=== PATIENT | male | born 1950 | race Caucasian/White ===

== ENCOUNTER → 2021-08-09 08:59 | Outpatient (BNVA) | payer MEDICARE, SELFPAY | PROVIDERS: PCP Internal Medicine | DX: N40.1 Benign prostatic hyperplasia with lower urinary tract symptoms (principal); R39.12 Poor urinary stream | CPT/HCPCS: 51798 ==

== ENCOUNTER → 2022-11-05 13:26 | Outpatient (BNVA) | payer OTHER, SELFPAY | PROVIDERS: PCP Student in an Organized Health Care Education/Training Program; Visit Provider Nurse Practitioner Family | DX: N40.1 Benign prostatic hyperplasia with lower urinary tract symptoms (principal); R39.12 Poor urinary stream; Z79.899 Other long term (current) drug therapy | CPT/HCPCS: 51798; 99212 ==

== ENCOUNTER 2023-04-25 09:56 | Outpatient (REF) | payer MEDICARE, SELFPAY ==
--- NOTE | ~2023-04-25 | US_ITS ---
EXAMINATION: US RETROPERITONEAL COMPLETE (RENAL) CLINICAL INFORMATION: Benign prostate hypertrophy and lower urinary tract symptoms. COMPARISON: None available. TECHNIQUE: Real-time imaging of the kidneys and bladder. FINDINGS: RIGHT KIDNEY: 10.5 x 6 x 6 cm (SAG x AP x TRV). The kidney is normal in size, contour, and echogenicity. Renal cortical thickness is normal. 2 cysts measuring 2.2 cm and 3.2 x 2.5 x 2.8 cm in the lower pole. No imaging follow-up recommended. No calculi or other focal parenchymal lesions. No hydronephrosis. LEFT KIDNEY: 11.4 x 5 x 6.5 cm (SAG x AP x TRV). The kidney is normal in size, contour, and echogenicity. Renal cortical thickness is normal. No calculi or focal parenchymal lesions. No hydronephrosis. BLADDER: Prostate gland is enlarged and protrudes into the base of the bladder. Bladder wall does not appear thickened. No stone or mass. Bilateral ureteral jets are demonstrated. Prevoid bladder volume is 200 mL. Postvoid bladder volume is 11 mL. The prostate gland measures 5.1 x 4.8 x 6 cm, volume 76 mL. The spleen is slightly enlarged measuring 16 cm in length. US/US retroperitoneal comp IMPRESSION: Unremarkable renal ultrasound. Enlarged prostate gland that protrudes into the base of the bladder. Slightly enlarged spleen.
[2023-04-25 12:03] LABS: PSA,Total (Free>4and<10) 1.99 ng/mL (0.00-4.00)
== END 2023-04-25 09:57 | disposition home or self-care (01) ==
LOC: HO.HMGCX 09:56
PROVIDERS: PCP Student in an Organized Health Care Education/Training Program; Visit Provider Nurse Practitioner Family
DX: Z12.5 Encounter for screening for malignant neoplasm of prostate (principal); N40.1 Benign prostatic hyperplasia with lower urinary tract symptoms; R39.12 Poor urinary stream
CPT/HCPCS: 36415; 76770; 84153

== ENCOUNTER → 2023-05-08 15:08 | Outpatient (BNVA) | payer MEDICARE, SELFPAY | PROVIDERS: PCP Student in an Organized Health Care Education/Training Program; Visit Provider Nurse Practitioner Family | DX: N40.1 Benign prostatic hyperplasia with lower urinary tract symptoms (principal); N13.8 Other obstructive and reflux uropathy; R39.12 Poor urinary stream; N52.9 Male erectile dysfunction, unspecified; Z79.82 Long term (current) use of aspirin; Z79.899 Other long term (current) drug therapy | CPT/HCPCS: 51798; 99212 ==

== ENCOUNTER 2023-10-27 09:40 | Outpatient (AMB) | payer MEDICARE, SELFPAY ==
--- NOTE | 2023-10-27 09:49 | MHC.OFFVIS ---
Intake Intake Visit Reasons: 6m/PVR Intake Note: Patient is present for follow up BPH/PVR Urology Medications: Terazosin, finasteride Blood Thinner: Aspirin PVR: 0ml's Phd Intern Required: No Accompanied by: Self / Same As Patient Allergies No Known Allergies [No Known Allergies*] Allergy (Verified 10/27/23 10:26) Medication List - Last Reconciled 10/27/23 by MARY Pfeiffer- amlodipine 10 mg PO DAILY aspirin (Adult Low Dose Aspirin) 81 mg PO DAILY atorvastatin 40 mg PO BEDTIME carvedilol 12.5 mg PO BID finasteride 5 mg PO DAILY 90 days fluticasone propion-salmeterol 250-50 mcg/dose 1 ea inhalation BID ibuprofen 800 mg PO Q8H PRN ipratropium-albuterol 20-100 mcg/actuation (Combivent Respimat) 1 puff inhalation QID PRN isosorbide mononitrate ER 30 mg PO DAILY omeprazole 40 mg PO BID terazosin 10 mg PO BEDTIME 90 days tramadol 50 mg PO TID PRN HPI HPI Comments History of Present Illness Details Lui is a pleasant 73-year-old male patient of Dr. Hunt. He has a PMH of cardiac pacemaker pacemaker, ED, BPH, asthma, hypertension, and hyperlipidemia. He presents to the office today for follow-up of his benign prostatic hyperplasia. Discussed with the patient today he reports feeling urinary symptoms are stable. He does report episodes of nocturia however states typically it is something else that wakes him up at night and then he needs to urinate. He discusses having had a recent MRI of his abdomen however ordering provider has not discussed results. These results were reviewed with the patient today. Evidence of bilateral inguinal hernia repairs. No evidence of hernia recurrence. Normal bowel caliber without evidence of obstruction. Colonic diverticulosis without evidence of diverticulitis. Unchanged mild splenomegaly. Trace bilateral effusions with adjacent passive atelectasis. No hydronephrosis, stones, or suspicious mass seen. Simple appearing renal cyst and hypodensities that are too small to characterize are noted, requiring no dedicated follow-up per radiology report. When asked he reports compliance with terazosin and finasteride as prescribed daily. He discusses following up with PCP for his ongoing right-sided intermittent abdominal discomfort he has been experiencing. He discusses he feels issues are related to his previous surgical interventions of bowel resections as well as hernia repairs. He otherwise denies any bothersome urinary issues or concerns. Patient with a previous TURP in the past with Dr. Saucedo. Discussed possible regrowth and the need for cystoscopy if symptoms arise. In office urinalysis results reviewed with the patient today. PVR 0 mL. PSA 05/02--2.0. PFSH Medical History Cardiac pacemaker Erectile dysfunction Benign prostatic hyperplasia with weak urinary stream Surgical History History of partial surgical removal of colon H/O cardiac catheterization Review of Systems Const Reports as per HPI Eyes Reports no additional complaints ENT Reports no additional complaints Card Reports no additional complaints Resp Reports as per HPI GI Reports no additional complaints Reports as per HPI Musc Reports as per HPI Neuro Reports as per HPI Psych Reports as per HPI Endo Reports no additional complaints Bao/Lymph Reports no additional complaints Aller/Immun Reports no additional complaints Physical Exam Const General: cooperative, healthy appearing, comfortable, no acute distress, well developed, alert and awake Orientation/consciousness: patient oriented x3 Limitations: no limitations HEENT Head: Yes normal to inspection, Yes normocephalic and Yes atraumatic Ears: hearing grossly normal bilaterally Eyes General: appearance normal, both eyes and all related structures Neck Neck: Yes normal visual inspection and Yes trachea midline Chest Chest palpation & inspection: normal inspection of the chest Resp Effort & Inspection: normal respiratory effort and able to speak in complete sentences Cardio Rate: regular rate GI Inspection: Yes normal to inspection General: Yes no CVA tenderness Back/Spine/Pelvis Back: no CVA tenderness Skin General skin exam: no rashes or lesions noted Neuro General: patient oriented x3 Extrem General: Yes normal to inspection Psych Appearance: grossly normal and well kempt Mental Status: mental status grossly normal Speech and movement: Normal speech and movement present and Clear speech present Affect: normal affect Attitude: cooperative Thought process: Normal thought process present Thought content: Normal thought content present Insight: Fair insight present (Psych) Judgement: Fair judgement present (Psych) Office Procedures Post Void Residual Post Residual Void Post Void Residual (PVR): 0 [id number]-[id number] Void Residual by ultrasound Results AMB Urinalysis, Automated UA Leukoctes 0 Matthieu/uL Last Edit by Rodrie Bress on 10/27/23 10:11 UA Nitrite Negative Last Edit by Zapieryce Bress on 10/27/23 10:11 UA Urobilinogen 0.2 mg/dL Last Edit by Zapieryce Bress on 10/27/23 10:11 UA Protein 0 mg/dL Last Edit by Zapieryce Bress on 10/27/23 10:11 UA pH 6.0 Last Edit by Zapieryce ActXss on 10/27/23 10:11 UA Blood 0 Barry/uL Last Edit by Zapieryce Bress on 10/27/23 10:11 UA Specific [employer] 1.015 Last Edit by ZapierycFixstarsss on 10/27/23 10:11 UA Ketone Negative Last Edit by [employer] on 10/27/23 10:11 UA Bilirubin 0 mg/dL Last Edit by ZapierycFixstarsss on 10/27/23 10:11 UA Glucose 0 mg/dL Last Edit by [employer] on 10/27/23 10:11 Results Reviewed Results Reviewed: Laboratory Last Values Urine pH (Auto) 6.0 10/27/23 10:00 Specific [employer] (Auto) 1.015 10/27/23 10:00 Urine Protein (Auto) 0 mg/dL 10/27/23 10:00 Glucose (UA)(Auto) 0 mg/dL 10/27/23 10:00 Urine Ketones (Auto) Negative 10/27/23 10:00 Urine Blood (Auto) 0 Barry/uL 10/27/23 10:00 Urine Nitrite (Auto) Negative 10/27/23 10:00 Urine Bilirubin (Auto) 0 mg/dL 10/27/23 10:00 Urine Urobilinogen (Auto) 0.2 mg/dL 10/27/23 10:00 Leukocyte Esterase (Auto) 0 Matthieu/uL 10/27/23 10:00 Assessment & Plan Assessment & Plan (1) Enlarged prostate: Code(s): N40.0 - Benign prostatic hyperplasia without lower urinary tract symptoms Plan In office urinalysis results reviewed with the patient today; as noted above. PVR 0 mL. Recent MRI imaging results obtained and reviewed with the patient today; as noted above. Patient denies any bothersome urinary issues or concerns at this time. Continue finasteride and terazosin as discussed and prescribed. Will obtain PSA in 6 months. Continue to follow-up with PCP as planned Patient reports be happy with current voiding parameters. Discussed, educated, encouraged on the importance of drinking plenty of water daily. Follow-up in 6 months with PVR and PSA; or sooner with any issues, concerns, and or questions. Orders: Orders AMB Urinalysis Automated Today Z13.9 - Encounter for screening, unspecified Prostate Specific Antigen 6 Months N40.0 - Benign prostatic hyperplasia without lower urinary tract symptoms AMB Post Void Residual by ultrasound Today N40.1 - Benign prostatic hyperplasia with lower urinary tract symptoms, R39.12 - Poor urinary stream Patient Instructions: The patient had an opportunity to ask questions regarding the treatment plan. All questions were answered. Physical exam, labs, and imaging were discussed and reviewed in detail. As well as risks, benefits, and discussion of treatment choices. No major barriers to understanding were identified. The patient expressed understanding and agreement with the above treatment plan. The patient was made aware they should contact our office by phone for worsening of their current condition, the appearance of new symptoms, or with any questions or concerns. Compliance is encouraged with any medications and follow up testing that is ordered. It is a privilege to be allowed the opportunity to participate in? your urological care.? Again, if you have any questions or concerns If you have any questions or concerns please do not hesitate to contact me. The office is [phone]. This note is constructed using voice recognition software. While every effort has been made to ensure accuracy recreation activities coordinator errors may have been included. Yours sincerely, ROBERT Pfeiffer Coding Level of Care Code Est Pt Level 3 (30823) Diagnoses Enlarged prostate N40.0 CPT Codes Post Residual Void - PVR CPT Code: 11996-Rcaq Void Residual by ultrasound ([id number])
== END 2023-10-27 10:27 | disposition home or self-care (01) ==
PROVIDERS: PCP Student in an Organized Health Care Education/Training Program; Visit Provider Nurse Practitioner Family
DX: Z13.9 Encounter for screening, unspecified (principal); N40.0 Benign prostatic hyperplasia without lower urinary tract symptoms
CPT/HCPCS: 99213

== ENCOUNTER → 2023-10-27 09:40 | Outpatient (BNVA) | payer MEDICARE, SELFPAY | PROVIDERS: PCP Student in an Organized Health Care Education/Training Program; Visit Provider Nurse Practitioner Family | DX: N40.0 Benign prostatic hyperplasia without lower urinary tract symptoms (principal) | CPT/HCPCS: 51798; 81003; 99212 ==

== ENCOUNTER 2024-04-23 08:15 | Outpatient (REF) | payer MEDICARE, SELFPAY ==
[2024-04-23 11:33] LABS: Prostate Specific Antigen 0.48 ng/mL (<0.05-4.0)
== END 2024-04-23 08:16 | disposition home or self-care (01) ==
LOC: HO.HMGCLDS 08:15
PROVIDERS: PCP Student in an Organized Health Care Education/Training Program; Visit Provider Nurse Practitioner Family
DX: N40.0 Benign prostatic hyperplasia without lower urinary tract symptoms (principal); Z12.5 Encounter for screening for malignant neoplasm of prostate
CPT/HCPCS: 36415; 84153

== ENCOUNTER 2024-04-28 10:28 | Outpatient (AMB) | payer MEDICARE, SELFPAY ==
--- NOTE | 2024-04-28 10:28 | A.OFFVIS_ITS ---
Intake Visit Reasons: 6m/PSA Intake Note: Patient is presents today for follow up on: BPH, Enlarged Prostate PSA: 1.99 Urology Medications: Terazosin, finasteride Blood Thinner: Aspirin PVR: 15ml's Equipment Installer Required: No Accompanied by: Self / Same As Patient Allergies No Known Allergies [No Known Allergies*] Allergy (Verified 04/28/24 11:11) Medication List - Last Reconciled 04/28/24 by KILEY PfeifferP- amlodipine 10 mg PO DAILY aspirin (Adult Low Dose Aspirin) 81 mg PO DAILY atorvastatin 40 mg PO BEDTIME carvedilol 12.5 mg PO BID finasteride 5 mg PO .MWF 90 days fluticasone propion-salmeterol 250-50 mcg/dose 1 ea inhalation BID ibuprofen 800 mg PO Q8H PRN ipratropium-albuterol 20-100 mcg/actuation (Combivent Respimat) 1 puff inhalation QID PRN isosorbide mononitrate ER 30 mg PO DAILY omeprazole 40 mg PO BID terazosin 10 mg PO BEDTIME 90 days tramadol 50 mg PO TID PRN HPI Comments Details: Lui is a pleasant 74-year-old male patient of Dr. Hunt. He has a PMH of cardiac pacemaker pacemaker, ED, BPH, asthma, hypertension, and hyperlipidemia. He presents to the office today for follow-up of his benign prostatic hyperplasia. In discussion with the patient today he reports urologically to be doing and feeling well. He reports compliance with finasteride and terazosin as prescribed. He reports significant improvement in nocturia. He currently denies any bothersome urinary issues or concerns. He denies urinary urgency, urinary frequency, incontinence, nocturia, hematuria, dysuria, foul smelling urine, changes to urinary stream, flank pain, fever, and or chills. He discusses his worry regarding his son who has metastatic cancer. He also reports to be following up with dermatology and has recently underwent MOHS procedure. In office urinalysis results reviewed with the patient today. PVR 15 mL. Otherwise offers no other issues or concerns at this time.the need for cystoscopy if symptoms arise. In office urinalysis results reviewed with the patient today. PSAs are as follows... PSA 05/02 2.0, 05/03 0.5 PFSH Medical History Cardiac pacemaker Erectile dysfunction Benign prostatic hyperplasia with weak urinary stream Surgical History History of partial surgical removal of colon H/O cardiac catheterization Review of Systems Const Reports as per [facility] Eyes Reports no additional complaints ENT Reports no additional complaints Card Reports no additional complaints Resp Reports as per [facility] GI Reports no additional complaints Reports as per HPI Musc Reports as per [facility] Skin/Breast Reports as per HPI Neuro Reports as per HPI Psych Reports as per HPI Endo Reports no additional complaints Bao/Lymph Reports no additional complaints Aller/Immun Reports no additional complaints Physical Exam Const General: cooperative, healthy appearing, comfortable, no acute distress, well developed, alert and awake Orientation/consciousness: patient oriented x3 Limitations: no limitations HEENT Head: Yes normal to inspection, Yes normocephalic and Yes atraumatic Ears: hearing grossly normal bilaterally Eyes General: appearance normal, both eyes and all related structures Neck Neck: Yes normal visual inspection and Yes trachea midline Chest Chest palpation & inspection: normal inspection of the chest Resp Effort & Inspection: normal respiratory effort and able to speak in complete sentences Cardio Rate: regular rate GI Inspection: Yes normal to inspection General: Yes no CVA tenderness Back/Spine/Pelvis Back: no CVA tenderness Skin General skin exam: no rashes or lesions noted Neuro General: patient oriented x3 Extrem General: Yes normal to inspection Psych Appearance: grossly normal and well kempt Mental Status: mental status grossly normal Speech and movement: Normal speech and movement present and Clear speech present Affect: normal affect Attitude: cooperative Thought process: Normal thought process present Thought content: Normal thought content present Insight: Fair insight present (Psych) Judgement: Fair judgement present (Psych) Office Procedures Post Void Residual Post Residual Void Post Void Residual (PVR): 15 [id number] Void Residual by ultrasound Results AMB Urinalysis, Automated UA Leukoctes 0 Matthieu/uL Last Edit by Evette Maradiaga on 04/28/24 10:50 UA Nitrite Negative Last Edit by Evette Maradiaga on 04/28/24 10:50 UA Urobilinogen 0.2 mg/dL Last Edit by Evette Maradiaga on 04/28/24 10:50 UA Protein 15 mg/dL Last Edit by Evette Maradiaga on 04/28/24 10:50 UA pH 6.0 Last Edit by Silmgreysonkevin Russellthe[employer] on 04/28/24 10:50 UA Blood 0 Barry/uL Last Edit by Slimmagalie Yvonnetheo on 04/28/24 10:50 UA Specific [employer] 1.015 Last Edit by Evette Yvonnetheo on 04/28/24 10:50 UA Ketone Negative Last Edit by Slimmagalie Yvonnetheo on 04/28/24 10:50 UA Bilirubin 1 mg/dL Last Edit by Evette Yvonnetheo on 04/28/24 10:50 UA Glucose 0 mg/dL Last Edit by Evette Yvonnetheo on 04/28/24 10:50 Results Reviewed Results Reviewed: Laboratory Last Values Urine pH (Auto) 6.0 04/28/24 10:30 Specific [employer] (Auto) 1.015 04/28/24 10:30 Urine Protein (Auto) 15 mg/dL 04/28/24 10:30 Glucose (UA)(Auto) 0 mg/dL 04/28/24 10:30 Urine Ketones (Auto) Negative 04/28/24 10:30 Urine Blood (Auto) 0 Barry/uL 04/28/24 10:30 Urine Nitrite (Auto) Negative 04/28/24 10:30 Urine Bilirubin (Auto) 1 mg/dL 04/28/24 10:30 Urine Urobilinogen (Auto) 0.2 mg/dL 04/28/24 10:30 Leukocyte Esterase (Auto) 0 Matthieu/uL 04/28/24 10:30 Assessment & Plan Assessment & Plan (1) Enlarged prostate: Code(s): N40.0 - Benign prostatic hyperplasia without lower urinary tract symptoms Category: Medical (2) Benign prostatic hyperplasia with weak urinary stream: Code(s): N40.1 - Benign prostatic hyperplasia with lower urinary tract symptoms; R39.12 - Poor urinary stream Category: Medical Plan In office urinalysis results reviewed with the patient today; as noted above. PVR 15 mL. Patient reports be happy with current voiding parameters. Currently denies any bothersome urinary issues or concerns. Recent PSA results reviewed with the patient today; as noted above. Discussed decrease of finasteride Friday; continue terazosin as prescribed; refill provided Follow-up in 6 months with PVR; or sooner with any issues, concerns, and or questions. Orders: Orders AMB Post Void Residual by ultrasound Today N40.1 - Benign prostatic hyperplasia with lower urinary tract symptoms, R39.12 - Poor urinary stream AMB Urinalysis Automated Today Z13.9 - Encounter for screening, unspecified Medications: Changed From finasteride 5 mg PO DAILY 90 days 90 tabs 3RF N40.1 - Benign prostatic hyperplasia with lower urinary tract symptoms, R33.9 - Retention of urine, unspecified To finasteride TAKE EVERY OTHER DAY 5 mg PO .MWF 90 days 45 tabs 3RF N40.1 - Benign prostatic hyperplasia with lower urinary tract symptoms, R33.9 - Retention of urine, unspecified Refilled terazosin 10 mg PO BEDTIME 90 days 90 caps 2RF Patient Instructions: The patient had an opportunity to ask questions regarding the treatment plan. All questions were answered. Physical exam, labs, and imaging were discussed and reviewed in detail. As well as risks, benefits, and discussion of treatment choices. No major barriers to understanding were identified. The patient expressed understanding and agreement with the above treatment plan. The patient was made aware they should contact our office by phone for worsening of their current condition, the appearance of new symptoms, or with any questions or concerns. Compliance is encouraged with any medications and follow up testing that is ordered. It is a privilege to be allowed the opportunity to participate in? your urological care.? Again, if you have any questions or concerns If you have any questions or concerns please do not hesitate to contact me. The office is [phone]. This note is constructed using voice recognition software. While every effort has been made to ensure accuracy special assemblies supervisor errors may have been included. Yours sincerely, ROBERT Pfeiffer Coding Level of Care Code Est Pt Level 3 (13463) Diagnoses Enlarged prostate N40.0 Benign prostatic hyperplasia with weak urinary stream N40.1; R39.12 CPT Codes Post Residual Void - PVR CPT Code: 33453-Eobu Void Residual by ultrasound ([id number])
== END 2024-04-28 11:10 | disposition home or self-care (01) ==
PROVIDERS: PCP Student in an Organized Health Care Education/Training Program; Visit Provider Nurse Practitioner Family
DX: N40.0 Benign prostatic hyperplasia without lower urinary tract symptoms (principal); N40.1 Benign prostatic hyperplasia with lower urinary tract symptoms; R39.12 Poor urinary stream; Z13.9 Encounter for screening, unspecified
CPT/HCPCS: 99213

== ENCOUNTER → 2024-04-28 10:28 | Outpatient (BNVA) | payer MEDICARE, SELFPAY | PROVIDERS: PCP Student in an Organized Health Care Education/Training Program; Visit Provider Nurse Practitioner Family | DX: N40.1 Benign prostatic hyperplasia with lower urinary tract symptoms (principal); R39.12 Poor urinary stream | CPT/HCPCS: 51798; 81003; 99212 ==

== ENCOUNTER 2024-12-14 11:39 | Outpatient (AMB) | payer MEDICARE, SELFPAY ==
--- NOTE | 2024-12-14 11:40 | A.OFFVIS_ITS ---
Intake Visit Reasons: 6m/PVR Intake Note: Patient is presents today for follow up on: BPH, Enlarged Prostate Urology Medications: Terazosin, finasteride Blood Thinner: Aspirin PVR: 0ml's Business System Manager Required: No Accompanied by: Self / Same As Patient Allergies No Known Allergies [No Known Allergies*] Allergy (Verified 12/14/24 14:21) HPI Comments Details: Lui is a pleasant 74-year-old male patient of Dr. Hunt. He has a PMH of cardiac pacemaker pacemaker, ED, BPH, asthma, hypertension, and hyperlipidemia. He presents to the office today for follow-up of his benign prostatic hyperplasia. In discussion with the patient today he reports urologically to be doing and feeling well. He reports compliance with finasteride and terazosin as prescribed. He reports significant improvement in nocturia urinary urgency. He currently denies any bothersome urinary issues or concerns. He denies urinary urgency, urinary frequency, incontinence, nocturia, hematuria, dysuria, foul smelling urine, changes to urinary stream, flank pain, fever, and or chills. He does report following up with his scroll saw operator and increasing his Lasix to 40 mg a day and has noted increased urinary frequency however relates this to his diuretic. He also reports following up with his slasher machine operator and has had a recent increase in his Celebrex as well as gabapentin. He discusses being active in his [employer] with his son and . He also discusses his 43 year wedding anniversary tomorrow. His son continues with his 5th year of chemo as he has metastatic cancer. In office urinalysis results reviewed with the patient today. PVR 15 mL. He otherwise offers no other issues or concerns at this time. PSAs are as follows... PSA 05/02 2.0, 05/03 0.5 [facility] Medical History Cardiac pacemaker Erectile dysfunction Benign prostatic hyperplasia with weak urinary stream Surgical History History of partial surgical removal of colon H/O cardiac catheterization Review of Systems Const Reports as per [facility] Eyes Reports no additional complaints ENT Reports no additional complaints Card Reports no additional complaints Resp Reports as per [facility] GI Reports no additional complaints Reports as per [facility] Musc Reports as per [facility] Skin/Breast Reports as per [facility] Neuro Reports as per [facility] Psych Reports as per [facility] Endo Reports no additional complaints Bao/Lymph Reports no additional complaints Aller/Immun Reports no additional complaints Physical Exam Const General: cooperative, healthy appearing, comfortable, no acute distress, well developed, alert and awake Orientation/consciousness: patient oriented x3 Limitations: no limitations HEENT Head: Yes normal to inspection, Yes normocephalic and Yes atraumatic Ears: hearing grossly normal bilaterally Eyes General: appearance normal, both eyes and all related structures Neck Neck: Yes normal visual inspection and Yes trachea midline Chest Chest palpation & inspection: normal inspection of the chest Resp Effort & Inspection: normal respiratory effort and able to speak in complete sentences Cardio Rate: regular rate GI Inspection: Yes normal to inspection General: Yes no CVA tenderness Back/Spine/Pelvis Back: no CVA tenderness Skin General skin exam: no rashes or lesions noted Neuro General: patient oriented x3 Extrem General: Yes normal to inspection Psych Appearance: grossly normal and well kempt Mental Status: mental status grossly normal Speech and movement: Normal speech and movement present and Clear speech present Affect: normal affect Attitude: cooperative Thought process: Normal thought process present Thought content: Normal thought content present Insight: Fair insight present (Psych) Judgement: Fair judgement present (Psych) Office Procedures Post Void Residual Post Residual Void Post Void Residual (PVR): 0 [id number]-[id number] Void Residual by ultrasound Results AMB Urinalysis, Automated UA Leukoctes 0 Matthieu/uL Last Edit by Evette Maradiaga on 12/14/24 14:25 UA Nitrite Last Edit by Evette Maradiaga on 12/14/24 14:25 UA Urobilinogen 0.2 mg/dL Last Edit by Evette Maradiaga on 12/14/24 14:25 UA Protein 0 mg/dL Last Edit by Evette Maradiaga on 12/14/24 14:25 UA pH 6.0 Last Edit by Evette Maradiaga on 12/14/24 14:25 UA Blood 0 Barry/uL Last Edit by Evette Yvonnetheo on 12/14/24 14:25 UA Specific [place] 1.015 Last Edit by Evette Yvonnetheo on 12/14/24 14:25 UA Ketone Last Edit by Evette Yvonnetheo on 12/14/24 14:25 UA Bilirubin 0 mg/dL Last Edit by Evette Yvonnetheo on 12/14/24 14:25 UA Glucose 100 mg/dL Last Edit by Evette Yvonnetheo on 12/14/24 14:25 Results Reviewed Results Reviewed: Laboratory Last Values Urine pH (Auto) 6.0 12/14/24 14:[address] [place] (Auto) 1.015 12/14/24 14:24 Urine Protein (Auto) 0 mg/dL 12/14/24 14:24 Glucose (UA)(Auto) 100 mg/dL 12/14/24 14:24 Urine Blood (Auto) 0 Barry/uL 12/14/24 14:24 Urine Bilirubin (Auto) 0 mg/dL 12/14/24 14:24 Urine Urobilinogen (Auto) 0.2 mg/dL 12/14/24 14:24 Leukocyte Esterase (Auto) 0 Matthieu/uL 12/14/24 14:24 Assessment & Plan Assessment & Plan (1) Enlarged prostate: Code(s): N40.0 - Benign prostatic hyperplasia without lower urinary tract symptoms Category: Medical (2) Benign prostatic hyperplasia with weak urinary stream: Code(s): N40.1 - Benign prostatic hyperplasia with lower urinary tract symptoms; R39.12 - Poor urinary stream Category: Medical Plan In office urinalysis results reviewed with the patient today; as noted above. PVR 15 mL. He reports be happy with current voiding parameters. He currently denies any bothersome urinary issues or concerns. Continue terazosin and finasteride as prescribed. Will obtain PSA in 6 months. Follow-up in 6 months with labs and PVR; or sooner with any issues, concerns, and or questions. Orders: Orders Prostate Specific Antigen 6 Months N40.0 - Benign prostatic hyperplasia without lower urinary tract symptoms, N40.1 - Benign prostatic hyperplasia with lower urinary tract symptoms, R39.12 - Poor urinary stream AMB Post Void Residual by ultrasound Today N40.0 - Benign prostatic hyperplasia without lower urinary tract symptoms AMB Urinalysis Automated Today Z13.9 - Encounter for screening, unspecified Patient Instructions: The patient had an opportunity to ask questions regarding the treatment plan. All questions were answered. Physical exam, labs, and imaging were discussed and reviewed in detail. As well as risks, benefits, and discussion of treatment choices. No major barriers to understanding were identified. The patient expressed understanding and agreement with the above treatment plan. The patient was made aware they should contact our office by phone for worsening of their current condition, the appearance of new symptoms, or with any qu estions or concerns. Compliance is encouraged with any medications and follow up testing that is ordered. It is a privilege to be allowed the opportunity to participate in? your urological care.? Again, if you have any questions or concerns If you have any questions or concerns please do not hesitate to contact me. The office is [phone]. This note is constructed using voice recognition software. While every effort has been made to ensure accuracy shank carrier errors may have been included. Yours sincerely, ROBERT Pfeiffer Coding Level of Care Code Est Pt Level 3 (32674) Complex EM visit Add On G2211 Diagnoses Enlarged prostate N40.0 Benign prostatic hyperplasia with weak urinary stream N40.1; R39.12 CPT Codes Post Residual Void - PVR CPT Code: 19787-Xrrx Void Residual by ultrasound ([id number])
--- OUTSIDE RECORDS SUMMARY | 2024-12-14 12:39 | XMS_ITS | Clinical Summary ---
Author Organization [address] [place] [address] Address [address] [place] [address] Phone Care Team Providers Care Sql Server Developer Name Role Phone Juve Reynoso Primary Care Provider [phone] Allergies Active Allergy Reactions Criticality Noted Date Comments Losartan High 08/18/2019 Angioedema-still being evaluated Medications Medication Sig Dispensed Refills Start Date End Date Status albuterol HFA (PROAIR HFA ; PROVENTIL HFA ; VENTOLIN HFA) 90 mcg/actuation inhaler Inhale 2 Puffs into the lungs every 4 hours as needed for Cough, Wheezing or Shortness of Breath (or chest tighness). This is a Rescue Medication not exceed 12 inhalations/24 hrs. 01/21/2024 Active aspirin 81 mg EC tablet Take 81 mg by mouth daily. Active atorvastatin (LIPITOR) 40 mg tablet Take 1 Tablet by mouth. 09/26/2023 Active celecoxib (CeleBREX) 200 mg capsule Take 1 Capsule by mouth daily. Active dapagliflozin propanediol (FARXIGA) 10 mg tablet Take 10 mg by mouth daily. 09/10/2024 Active EPINEPHrine (EpiPen 2-Bladimir) 0.3 mg/0.3 mL injection Inject 0.3 mg into the muscle. 10/09/2023 Active finasteride (PROSCAR) 5 mg tablet Take 1 Tablet by mouth every other day. 05/08/2023 Active fluticasone-salmete rol (ADVAIR DISKUS) 250-50 mcg/dose diskus inhaler Inhale 1 Puff into the lungs 2 Times Daily. 01/21/2024 Active furosemide (LASIX) 40 mg tablet Take 1 Tablet by mouth daily for 180 days. 09/09/2024 03/08/2025 Active gabapentin (NEURONTIN) 400 mg capsule Take 1 Capsule by mouth 2 Times Daily. Active glucosamine ho 2KCl-chondroit 750-600 mg tablet Take by mouth 2 Times Daily. Active DAILY MULTI-VITAMIN ORAL Take 1 Tablet by mouth daily. Active omeprazole (PriLOSEC) [address] capsule Take 1 Capsule by mouth daily. Active terazosin (HYTRIN) 10 mg capsule 1 Cap daily. 05/03/2019 Active traMADoL (ULTRAM) 50 mg tablet Take 50 mg by mouth 4 times daily as needed. 07/17/2017 Active carvediloL (COREG) 25 mg tablet Take 1 tablet (25 mg total) by mouth 2 (two) times a day with meals. 180 each 3 09/16/2024 09/16/2025 Active baclofen (LIORESAL) 5 mg tablet Take 1 tablet (5 mg total) by mouth 3 (three) times a day. Active Active Problems Problem Noted Date Diagnosed Date Chronic diastolic heart failure 09/09/2024 Lower extremity edema 09/07/2024 Obesity due to excess calories with serious raudel rbidity 02/21/2022 Obstructive sleep apnea 02/21/2022 Overview (09/14/2024): Last Assessment & Plan: The patient has been noncompliant with CPAP for many years; he declines referral for new sleep study or to pulmonology for further evaluation of his JEANETTE. We discussed the potential implications for his health regarding to untreated JEANETTE, he verbalizes understanding of this. We have reviewed that this may be contributing to his high blood pressure as well, and he continues to decline further intervention. Complete heart block 07/25/2021 Overview (09/14/2024): Last Assessment & Plan: Pacemaker in place, noted to be functioning properly on last check 06/29/2023. Continue with with device checks at the device clinic. Heart murmur 07/25/2021 Cardiac pacemaker in situ 12/30/2019 Asthma 10/04/2019 Stage 3 chronic kidney disease 10/04/2019 Overview (09/14/2024): Last Assessment & Plan: The patient does not follow with nephrology; he reports that his PCP has been monitoring this closely. SOB (shortness of breath) 08/26/2018 Overview (09/14/2024): Chronic, ct revealed small bilateal pleural effusion, refer to pulm pending and pfts Last Assessment & Plan: Chronic and stable, patient reports is at baseline. Uses FABIANO as needed. Return for any worsening symptoms. Adjustment disorder with mixed anxiety and depre ssed mood 08/14/2017 Coronary artery disease invo lving port lions coronary artery of port lions heart without angina pectoris 06/16/2017 Overview (09/14/2024): Cardiac catheterization 2016 Dr. Magana showing 50% LAD lesion recommendation is medical treatment Last Assessment & Plan: The patient reports baseline dyspnea with exertion, which is very mild and not consistent from activity to activity. He has 7 acres and is able to perform significantly exertional activities without any dyspnea, reporting the only time he really feels this is when he is bending over and lifting heavy things then walking for distance. He is a new diagnosis of hiatal hernia per his report, which may be contributing to this. He has no other is symptoms concerning for ischemia, and as such no further work-up is indicated at present. LDL cholesterol well controlled on last check 12/30/2022. We will continue carvedilol, atorvastatin 40 mg daily, as well as daily baby aspirin without change. Patient advised to seek emergency medical attention by calling 911 if they were to develop severe dyspnea, chest pain that did not resolve with rest, or if they were to faint. Subjective memory complaints 10/23/2016 Major depressive disorder, recurrent, moderate 0 07/19/2015 Irritable bowel syndrome 09/20/2013 C. difficile colitis 06/15/2013 Overview (09/14/2024): 08/2018, & 08/2013, Impaired fasting glucose 04/16/2013 BPH (benign prostatic hyperplasia) 03/11/2012 Overview (09/14/2024): Dr. Allen Fibromyalgia 03/07/2010 Essential hypertension 12/11/2009 Overview (09/14/2024): Last Assessment & Plan: The patient has had a recent adjustment in his medications with increase of carvedilol from 12.5 mg twice daily to 25 mg twice daily due to elevated blood pressures at home. He continues to take amlodipine 10 mg once daily as well. He is tolerating these medications well and reports compliance. His blood pressure is adequately controlled on today's measurement, however he reports that he is still having some high blood pressures at home on his home cuff. I have requested that he return within the next 2 weeks and that he bring his home cuff with him, so that we may check his blood pressure 1 more time to sure it remains well controlled and we will correlate his home cuff with ours at that time. Patient is agreeable to plan. We will make adjustments as needed once this repeat blood pressure check has been completed; no changes today. Mixed hyperlipidemia 09/06/2008 Overview (09/14/2024): Last Assessment & Plan: We will update labs Diverticulosis 01/01/2007 Overview (09/14/2024): 2013 Diverticulitis - partial bowel resection Esophageal reflux 10/14/2005 Hypersomnia with sleep apnea 10/14/2005 Overview (09/14/2024): Pt not interested in cpap Encounters Date Type Department Care Team Description 12/06/2024 Telephone [facility] [address] [facility] [address] [place] [phone] Alessandra Kenny MA Medication Problem (Farxiga?) 10/25/2024 Telephone [facility] [address] [facility] [address] [place] [phone] Argenis Bains NP 10/19/2024 10:10 AM EST Office Visit Pulmonolgy - [place] [address] [facility] [address] [place] [phone] Katherine Marin NP Moderate persistent asthma without complication (Primary Dx); SOB (shortness of breath); Chronic diastolic heart failure (CMS/HCC); Gastroesophageal reflux disease, unspecified whether esophagitis present; Obstructive sleep apnea; Class 1 obesity due to excess calories with serious comorbidity in adult, unspecified BMI 10/05/2024 10:30 AM EST Ancillary Procedure [facility] [place] [facility] [address] [place] [address] Complete heart block (CMS/HCC); AV heart block; Coronary artery disease involving port lions coronary artery of port lions heart without angina pectoris; Stage 3 chronic kidney disease, unspecified whether stage 3a or 3b CKD (CMS/HCC); SOB (shortness of breath); Lower extremity edema 09/22/2024 5:50 PM EST Ancillary Procedure [facility] [place] [facility] [address] [place] [phone] from Last 3 Months Immunizations Name Administration Dates Next Due Moderna SARS-CoV-2 COVID-19, mRNA, LNP-S, preservative free 09/21/2021 Pneumococcal conjugate 13 va lent (Prevnar 13, PCV13) 2mo and older 06/30/2015 Pneumococcal polysaccharide 23 valent (Pneumovax 23) 2yo and older 04/14/2014 Td Tetanus diptheria (Tdvax) 7yo and older 09/23 Tdap Tetanus diptheria acell ular pertussis (Boostrix; Adacel) 7yo and older 07/20/2008 Zoster Live 10/14/2013 Surgical History Surgery Date Site/Laterality Comments COLONOSCOPY 07/12/2011 PROCEDURE: HISTORICAL COLONOSCOPY; COMMENT: diverticulosis; random bx: Colonic biopsies normal. No microscopic colitis. OTHER SURGICAL HISTORY 08/2013 PROCEDURE: MN COLECTOMY PARTIAL W/ANASTOMOSIS; COMMENT: sigmoid colectomy for diverticulitis 2012 dr stone COLONOSCOPY 2003 PROCEDURE: HISTORICAL COLONOSCOPY; COMMENT: 15 mm Sessile tubular adenoma. COLONOSCOPY 2006 PROCEDURE: HISTORICAL COLONOSCOPY; COMMENT: No polyps COLONOSCOPY 2015 PROCEDURE: HISTORICAL COLONOSCOPY; COMMENT: 8 mm right colon polyp: tubular adenoma. CARDIAC CATHETERIZATION 2017 PROCEDURE: HISTORICAL CARDIAC CATH; COMMENT: 65% LAD TONSILLECTOMY 1954 PROCEDURE: HISTORICAL TONSILLECTOMY OTHER SURGICAL HISTORY 04/26/2019 PROCEDURE: MN LASER VAPORIZATION OF PROSTATE FOR URINE FLOW; COMMENT: Dr. Saucedo HERNIA REPAIR 2013 Left PROCEDURE: HISTORICAL HERNIA REPAIR/ING; COMMENT: 2013 CATARACT EXTRACTION 2017 PROCEDURE: HISTORICAL CATARACT REMOVAL HERNIA REPAIR 2018 Right PROCEDURE: HISTORICAL HERNIA REPAIR/ING Medical History Medical History Date Comments Mixed hyperlipidemia 09/06/2008 DX:Mixed hy perlipidemia Impaired fasting glucose 04/16/2013 DX:Impa ired fasting glucose Hypertension 12/11/2009 DX:Hypertension Adjustment disorder with mix ed anxiety and depressed mood 08/14/2017 DX:Adjustment disorder with mixed anxiety and depressed mood BPH (benign prostatic hyperplasia) 03/11/2012 DX:BPH (benign prostatic hyperplasia); COMMENT: Dr. Allen CAD (coronary artery disease) 06/16/2017 DX :CAD (coronary artery disease); COMMENT: Cardiac catheterization 2016 Dr. Magana showing 50% LAD lesion recommendation is medical treatment Esophageal reflux 10/14/2005 DX:Esophageal reflux Fibromyalgia 03/07/2010 DX:Fibromyalgia History of colonic polyps 01/01/2007 DX:His tory of colonic polyps; COMMENT: colonoscopy 2003, sessile tubular adenoma, ascending colon. Negative colonoscopy 01/01/2007, 07/12/20112015 Hypersomnia with sleep apnea 10/14/2005 DX: Hypersomnia with sleep apnea; COMMENT: Pt not interested in cpap Irritable bowel syndrome 09/20/2013 DX:Irri table bowel syndrome Major depressive disorder, r ecurrent, moderate (CMS/HCC) 07/19/2015 DX:Major depressive disorder , recurrent, moderate (HCC) Subjective memory complaints 10/23/2016 DX: Subjective memory complaints SOB (shortness of breath) 08/26/2018 DX:SOB (shortness of breath); COMMENT: Chronic, ct revealed small bilateal pleural effusion, refer to pulm pending and pfts CKD (chronic kidney disease) stage 3, GFR 30-59 ml/min (CMS/HCC) 10/04/2019 DX:CKD (chronic kidney dise ase) stage 3, GFR 30-59 ml/min (HCC) Asthma 10/04/2019 DX:Asthma Diverticulosis 01/01/2007 DX:Diverticulosi s; COMMENT: 2012 Diverticulitis - partial bowel resection C. difficile colitis 06/15/2013 DX:C. diffi cile colitis; COMMENT: 08/2018, & 08/2013, Family History Medical History Relation Name Comments Heart failure Father age 88 Arthritis Mother age 86 Autoimmune disease Neg Hx Breast cancer Neg Hx Colon cancer Neg Hx Coronary artery disease Neg Hx Diabetes Neg Hx Heart attack Neg Hx Hyperlipidemia Neg Hx Hypertension Neg Hx Mental illness Neg Hx Prostate cancer Neg Hx Sleep apnea Neg Hx Thyroid disease Neg Hx Relation Name Status Comments Father (Age 88) only child Mother (Age 86) Social History Tobacco Use Types Packs/Day Years Used Date Smoking Tobacco: Never Smokeless Tobacco: Never Alcohol Use Standard Drinks/Week Comments Yes 0 (1 standard drink = 0.6 oz pur e alcohol) Sex and Gender Information Value Date Recorded Sex Assigned at Not on file Gender Identity Not on file Sexual Orientation Not on file Job Start Date Occupation Industry Not on file Not on file Not on file Obstetrics History Last Filed Vital Signs Vital Sign Reading Time Taken Comments Blood Pressure 124/60 10/19/2024 10:20 AM EST Pulse 54 10/19/2024 10:20 AM EST Temperature 36.9 ??C (98.5 ??F) 10/19/2024 10:[address] Respiratory Rate 16 10/19/2024 10:20 AM EST Oxygen Saturation 96% 10/19/2024 10:20 AM EST Inhaled Oxygen Concentration - - Weight 92.8 kg (204 lb 9.6 oz) 10/19/2024 10:20 AM EST Height 170.2 cm (5' 7 ) 10/19/2024 10:20 AM EST Body Mass Index 32.04 10/19/2024 10:20 AM EST Plan of Treatment Upcoming Encounters Date Type Department Care Team (Late st Contact Info) Description 12/16/2024 10:30 AM EST Ancillary Procedure [facility] [place] [facility] [address] [facility] [address] [place] [address] 01/28/2025 10:40 AM EDT Office Visit [facility] [address] [facility] [address] [place] [phone] Cyndy Diego NP [address] [facility] [address] [place] [address] 04/20/2025 10:30 AM EDT Office Visit Pulmonolgy [facility] [address] [facility] [address] [place] [phone] Katherine Marin NP [address] [facility] [address] [place] [address] Health Maintenance Due Date Last Done Comments Zoster Vaccines (2 of 3) 12/09/2013 10/14/2013 Depression Screening 10/19/2022 Falls Risk Assessment 10/19/2022 Medicare Annual Wellness Visit 10/19/2022 Social Influencers of Health Screening 10/19/2022 RSV Immunization Patients 60+ Years Old (1 - 1-dose 75+ series) 2024 Influenza Vaccine (#1) 2024 Hypertension/CHF/CAD Annual BMP Blood Test 09/14/2025 09/14/2024, 08/26/2022 Cholesterol Screening (Lipid Panel) 08/26/2027 08/26/2022 DTaP,Tdap,and Td Vaccines (3 - Td or Tdap) 09/23/2028 09/23/2018, 07/20/2008 Colorectal Cancer Screening: Colonoscopy 07/19/2032 07/19/2022 Hepatitis C Screening Completed 10/15/2013 Pneumococcal Vaccine: 65+ Years Completed 06/30/2015, 04/14/2014 COVID-19 Vaccine Completed 08/04/2024, 03/2023, 09/13/2022, Additional history exists HIB Vaccines Aged Out No longer eligi ble based on patient's age to complete this topic HPV Vaccines Aged Out No longer eligi ble based on patient's age to complete this topic Hepatitis A Vaccines Aged Out No long er eligible based on patient's age to complete this topic Hepatitis B Vaccines Aged Out No long er eligible based on patient's age to complete this topic IPV Vaccines Aged Out No longer eligi ble based on patient's age to complete this topic MMR Vaccines Aged Out No longer eligi ble based on patient's age to complete this topic Meningococcal ACWY Vaccine Aged Out N o longer eligible based on patient's age to complete this topic RSV Immunization Patients Under 20 months Aged Out No longer eligible based on patient's age to complete this topic Varicella Vaccines Aged Out No longer eligible based on patient's age to complete this topic Medical Devices Implanted Type Area Bait Packer Device Identifier Shelf Expiration Date Model / Serial / Lot Bsci-Crm [id number] Implanted: (Quantity not on file) Cardiac Pacemaker [employer]HY[employer] MGMT [id number] / [id number] / Procedures Procedure Name Priority Date/Time Associated Diagnosis Comments VAS US DUPLEX LOWER EXT VENOUS INSUFFICIENCY BILATERAL Routine 10/05/2024 11:23 AM EST Complete heart block (CMS/HCC) AV heart block Coronary artery disease involving port lions coronary artery of port lions heart without angina pectoris Stage 3 chronic kidney disease, unspecified whether stage 3a or 3b CKD (CMS/HCC) SOB (shortness of breath) Lower extremity edema CARDIAC DEVICE CHECK- REMOTE- MURJ Routine 09/22/2024 5:47 PM EST SPECIMEN STATUS REPORT Routine 12:00 PM EST BASIC METABOLIC PANEL Routine 09/14/2024 12:00 PM EST LIPID PANEL Routine 08/26/2022 HM COLONOSCOPY Routine 07/19/2022 HEPATITIS C SCREENING Routine 10/15/2013 from Last 3 Months or Most Recently Relevant to Health Maintenance Results * Vascular US duplex lower extremity venous insufficiency bilateral (10/05/2024 11:23 AM EST) Right SFJ Diameter 0.65 cm CV VAS LAB Right GSPT rebekah 0.49 cm CV VAS LAB Right GSMT rebekah 0.38 cm CV VAS LAB Right GSK rebekah 0.49 cm CV VAS LAB Right GSPC rebekah 0.37 cm CV VAS LAB Right GSDC rebekah 0.25 cm CV VAS LAB Right SPJ Diameter 0.62 cm CV VAS LAB Right SSPC rebekah 0.45 cm CV VAS LAB Right SSMC rebekah 0.28 cm CV VAS LAB Left SFJ Diameter 0.78 cm CV VAS LAB Left GSPT rebekah 0.38 cm CV VAS LAB Left GSMT rebekah 0.40 cm CV VAS LAB Left GSK rebekah 0.35 cm CV VAS LAB Left GSPC reflux 3,166 ms CV VAS LAB Left GSPC rebekah 0.33 cm CV VAS LAB Left GSDC rebekah 0.33 cm CV VAS LAB Left SPJ Diameter 0.39 cm CV VAS LAB Left SSPC rebekah 0.33 cm CV VAS LAB Left SSMC rebekah 0.25 cm CV VAS LAB Anatomical Region Laterality Modality Vascular, Abdomen Ultrasound Narrative 10/10/2024 3:29 PM EST Right: 1. ??The right lower extremity veins are compressible and there is no evidence of DVT in the right lower extremity venous system. 2. The GSV and SSV has no clinically significant reflux. Left: 1. ??The left lower extremity veins are compressible and there is no evidence of DVT in the left lower extremity venous system. 2. The GSV has clinically significant reflux of 3.1 seconds at the left upper calf. 3. The SSV has no clinically significant reflux. Right Lower Venous The common femoral, femoral, greater saphenous and lesser saphenous and popliteal veins were interrogated, demonstrating normal compressibility. Doppler signals were phasic and spontaneous. Right Venous Insufficiency Duplex The exam was performed with the patient in reverse Trendelenburg. Left Lower Venous The common femoral, femoral, greater saphenous and lesser saphenous and popliteal veins were interrogated, demonstrating normal compressibility. Doppler signals were phasic and spontaneous. Left Venous Insufficiency Duplex The exam was performed with the patient in reverse trendelenburg. Lure Maker Details A burnham scale, color and doppler analysis ultrasound was performed. During the study transverse views were obtained. Continuous wave doppler and pulsed wave doppler was performed. Jeanmarie Denise MD CV VASCULAR PROCEDUR ES * Cardiac device check - Remote- MURJ (09/22/2024 5:47 PM EST) Date Time Interrogation Session [id number] CV DEVICE CHECK Type Interrogation Session Remote Scheduled CV DEVICE CHECK Implantable Pulse Generator Bait Packer BSX CV DEVICE CHECK Implantable Pulse Generator Type IPG CV DEVICE CHECK Implantable Pulse Generator Model L111 CV DEVICE CHECK Implantable Pulse Generator Serial Number [id number] CV DEVICE CHECK Implantable Pulse Generator Implant Date 20191204 CV DEVICE CHECK Battery Remaining Percentage 86.00 CV DEVICE CHECK Battery Remaining Longevity 54.0 CV DEVICE CHECK Battery Status Beginning of Service CV DEVICE CHECK Eddie Statistic RA Percent Paced 22.00 CV DEVICE CHECK Eddie Statistic RV Percent Paced 100.00 CV DEVICE CHECK Atrial Tachy Statistic AT/AF [place] Percent 0.00 CV DEVICE CHECK Lead Channel Setting Sensing Sensitivity 0.25 CV DEVICE CHECK Lead Channel Impedance Value 681 CV DEVICE CHECK Lead Channel Pacing Threshold Amplitude 0.600 CV DEVICE CHECK Lead Channel Pacing Threshold Pulse Width 0.4 CV DEVICE CHECK Lead Channel RA Pacing Threshold Date 2024-09-20 CV DEVICE CHECK Lead Channel Setting Pacing Amplitude 2.000 CV DEVICE CHECK Lead Channel Setting Pacing Pulse Width 0.4 CV DEVICE CHECK Lead Channel Setting Sensing Sensitivity 0.60 CV DEVICE CHECK Lead Channel Impedance Value 751 CV DEVICE CHECK Lead Channel Pacing Threshold Amplitude 1.000 CV DEVICE CHECK Lead Channel Pacing Threshold Pulse Width 0.4 CV DEVICE CHECK Lead Channel RV Pacing Threshold Date 2024-09-20 CV DEVICE CHECK Lead Channel Setting Pacing Amplitude 1.300 CV DEVICE CHECK Lead Channel Setting Pacing Pulse Width 0.4 CV DEVICE CHECK Eddie Setting Mode (NBG Code) DDD CV DEVICE CHECK Eddie Setting Lower Rate Limit 50 CV DEVICE CHECK Eddie Setting AT Mode Switch Rate 170 CV DEVICE CHECK Eddie Setting Maximum Tracking Rate 130 CV DEVICE CHECK Eddie Setting PAV Delay 150 CV DEVICE CHECK Eddie Setting BERTHA Delay 135 CV DEVICE CHECK Zone Setting Type Category VT CV DEVICE CHECK Rate 160 CV DEVICE CHECK Zone Setting Status Monitor CV DEVICE CHECK Zone ID 1 CV DEVICE CHECK Date of Service 2024-10-02 CV DEVICE CHECK Anatomical Region Laterality Modality Device Interroga tion 09/22/2024 12:5 5 AM EST Impressions 09/22/2024 5:43 PM EST Normal Remote: No Events * Normal Device Function * Alerts or events: None * Battery: Battery is at 86%, 4.50 yrs * Sensing, impedance and thresholds reviewed * Programmed parameters reviewed * Presenting rhythm reviewed * Heart Rate Histograms reviewed * No significant changes noted Narrative Procedure Note Omer Sidhu MD - 09/22/2024 IMPRESSION: Normal Remote: No Events * Normal Device Function * Alerts or events: None * Battery: Battery is at 86%, 4.50 yrs * Sensing, impedance and thresholds reviewed * Programmed parameters reviewed * Presenting rhythm reviewed * Heart Rate Histograms reviewed * No significant changes noted Omer Sidhu MD CV IMPLANTABLE CARDI AC DEVICE PROCEDURES * SPECIMEN STATUS REPORT (09/14/2024 12:00 PM EST) Specimen Status Report Comment [facility] 1 Comment: Martina Perez BMP8 Default Martina Perez BMP8 Default A hand-written panel/profile was received from your office. In accordance with the [facility] Ambiguous Test Code Policy dated May 2003, we have completed your order by using the closest currently or formerly recognized AMA panel. ??We have assigned Basic Metabolic Panel (8), Test Code #000574 to this request. If this is not the testing you wished to receive on this specimen, please contact the [facility] Client Inquiry/Technical Services Department to clarify the test order. ??We appreciate your business. 09/14/2024 12:0 0 PM EST 09/14/2024 Narrative [facility] 1 - 09/15/2024 3:06 AM EST Performed at: ??01 - [address] ??[id number] Requirements Manager: Maxine Clayton MD, Phone: ??[phone] Jeanmarie Denise MD LAB BLOOD ORDERABLES [facility] 1 * (ABNORMAL) Basic metabolic panel (09/14/2024 12:00 PM EST) Glucose 103(H) 70 - 99 mg/dL [facility] 1 Blood Urea Nitrogen (BUN) 34(H) 8 - 27 mg/dL [facility] 1 Creatinine 1.44(H) 0.76 - 1.27 mg/dL [facility] 1 eGFR 51(L) >59 mL/min/1.7 3 [facility] 1 BUN/Creatinine Ratio 24 10 - 24 [facility] 1 Sodium 143 134 - 144 mmol/L [facility] 1 Potassium 4.2 3.5 - 5.2 mmol/L [facility] 1 Chloride 106 96 - 106 mmol/L [facility] 1 Carbon Dioxide 22 20 - 29 mmol/L [facility] 1 Calcium 8.9 8.6 - 10.2 mg/dL [facility] 1 09/14/2024 12:0 0 PM EST 09/14/2024 Narrative [facility] 1 - 09/15/2024 3:06 AM EST Performed at: ??01 - [facility] [address] ??[id number] Requirements Manager: Maxine Clayton MD, Phone: ??[phone] Jeanmarie Denise MD LAB BLOOD ORDERABLES [facility] 1 * (ABNORMAL) Lipid panel (08/26/2022) Pathologist [facility] LDL/HDL Ratio 4 0 - 4 Triglycerides 89 0 - 150 mg/dL Cholesterol 122 0 - 200 mg/dL HDL 35(A) 40 mg/dL LDL Cholesterol 70 0 - 100 mg/dL Blood Venous blood specimen / Unknown Historical Provider LAB BLOOD ORDERAB LES * Colonoscopy (07/19/2022) Pathologist [facility] Colonoscopy No Interpretation , Abstracted Anatomical Region Laterality Modality Other Historical Provider HEALTH MAINTENANC E * Hepatitis C Screening (10/15/2013) Pathologist [facility] Hepatitis C Screening Abstracted Historical Provider HEALTH MAINTENANC E from Last 3 Months or Most Recently Relevant to Health Maintenance Advance Directives Documents on File Type Date Recorded Patient Chain Builder Expl anation Health Care Decision (hx) 07/04/2018 AD JOHNSON DIRECTIVE Health Care Decision (hx) 07/04/2018 AD JOHNSON DIRECTIVE Health Care Decision (hx) 07/04/2018 AD JOHNSON DIRECTIVE Health Care Decision (hx) 07/04/2018 AD JOHNSON DIRECTIVE Health Care Decision (hx) 07/04/2018 AD JOHNSON DIRECTIVE Health Care Decision (hx) 07/04/2018 AD JOHNSON DIRECTIVE Health Care Decision (hx) 07/04/2018 AD JOHNSON DIRECTIVE Care Teams Sql Server Developer Relationship Specialty Start Date End Date Juve Reynoso PA [address] [place], [place] PCP - General 09/07/24
--- OUTSIDE RECORDS SUMMARY | 2024-12-14 12:39 | XMS_ITS | Continuity of Care Document ---
Author Organization [facility] Address [address] [place] [address]- Care Team Providers Care Partition Notcher Name Role Phone Juve Chen Primary Care Physician [phone] [facility] Date(s): 11/09/24 - 12/09/[address] [address] Encounter Type: Triage Allergies, Adverse Reactions, Alerts Substance Criticality Severity Reaction Reaction Severity Status losartan Active Immunizations Given and Recorded Vaccine Date Status Refusal Reason [id number] bivalent booster vax 09/13/22 Recorded SARS-CoV-2 (COVID-19) mRNA-1273 vaccine 09/21/21 R ecorded SARS-CoV-2 (COVID-19) mRNA-1273 vaccine 02/06/21 R ecorded SARS-CoV-2 (COVID-19) mRNA-1273 vaccine 01/09/21 R ecorded tetanus-diphtheria toxoids (Td) 09/23/18 Recorded pneumococcal 13-valent vaccine 06/30/15 Recorded pneumococcal 23-valent vaccine 04/14/14 Recorded Zoster Vaccine Live 10/14/13 Recorded tetanus/diphtheria/pertussis, acel(Tdap) 07/20/08 Recorded Medications Aerochamber See Instructions, # 1 each, Maintenance, use with MDI, 04/07/19 4:46:00 PM EDT, Compound Start Date: 04/07/19 Status: Ordered Quantity: 1.0 Unit: each Repeat number: 1 amLODIPine 10 mg oral tablet 1 tablet, By Mouth, Daily, # 90 tablet, 1 Refills, Maintenance, 06/29/24 10:43:00 AM EDT, [facility], 170.4, cm, 12/25/23 8:59:00 EST, Height, 92, kg, 07/30/23 13:06:00 EDT, Dry Weight Start Date: 06/29/24 Stop Date: 12/26/24 Status: Ordered Quantity: 90.0 Unit: tablet Repeat number: 2 aspirin 81 mg oral tablet 1 tablet, By Mouth, Daily, # 30 tablet, 0 Refills, Maintenance, 06/28/11 1:35:08 PM EDT, Tablet Start Date: 06/28/11 Status: Ordered Quantity: 30.0 Unit: tablet Repeat number: 1 atorvastatin 40 mg oral tablet 1 tablet, By Mouth, Daily, # 90 tablet, 1 Refills, Maintenance, 12/03/24 12:09:00 PM EST, [facility], 170.4, cm, 09/01/24 17:27:00 EDT, Height, 95, kg, 09/01/24 17:27:00 EDT, Dry Weight Start Date: 12/03/24 Status: Ordered Quantity: 90.0 Unit: tablet Repeat number: 1 baclofen 5 mg oral tablet 1 tablet = 5 mg, By Mouth, 3 times a day, # 90 tablet, 0 Refills, Maintenance, 11/09/24 8:33:00 AM EST, Tablet, [facility], Partial fill upon patient request if the prescription is for a schedule II opioid drug., 170.4, cm, 09/01/24 17:27:00 EDT, Height, 95, kg, 09/01/24 17:27:00 EDT, Dry Weight Start Date: 11/09/24 Status: Ordered Quantity: 90.0 Unit: tablet Repeat number: 1 celecoxib 200 mg oral capsule 1 capsule, By Mouth, Daily, PRN NEEDED FOR MODERATE PAIN, # 90 capsule, 0 Refills, Maintenance, 10/12/24 12:41:00 PM EST, [facility], 170.4, cm, 09/01/24 17:27:00 EDT, Height, 95, kg, 09/01/24 17:27:00 EDT, Dry Weight Start Date: 10/12/24 Status: Ordered Quantity: 90.0 Unit: capsule Repeat number: 1 Combivent Respimat 20 mcg-100 mcg/inh inhalation aerosol 1 puffs, Inhalation, 4 times a day, 0 Refills, Maintenance, 12/17/22 1:44:00 PM EST, Partial fill upon patient request if the prescription is for a schedule II opioid drug. Start Date: 12/17/22 Status: Ordered Repeat number: 1 Daily Multi By Mouth, Daily, 0 Refills, Maintenance, 12/17/22 1:47:00 PM EST, Partial fill upon patient request if the prescription is for a schedule II opioid drug. Start Date: 12/17/22 Status: Ordered Repeat number: 1 EpiPen 2-Bladimir 0.3 mg injectable kit = 0.3 mg, Intramuscular, Once, # 1 each, 0 Refills, Soft Stop, 10/09/23 11:14:00 AM EST, [facility], Partial fill upon patient request if the prescription is for a schedule II opioid drug., 170.4, cm, 08/21/23 8:39:00 EDT, Height, 92, kg, 07/30/23 13:06:00 EDT, Dry Weight Start Date: 10/09/23 Status: Ordered Quantity: 1.0 Unit: each Repeat number: 1 finasteride 5 mg oral tablet .05, By Mouth, Daily, TAKE 1 TABLET BY MOUTH ONCE DAILY Start Date: 06/19/23 Status: Ordered Repeat number: 1 furosemide 20 mg oral tablet 1, capsule, By Mouth, 2 times a day, # 28 capsule, Refills 0, Tot. Refills 0, Soft Stop, 09/01/24 3:54:00 PM EDT, Route to Pharmacy Electronically, [facility], Partial fill upon patient request if the prescription is for a schedule II opioid drug., 170.4, cm, 09/01/24 14:38:00 EDT, Height, 95.5, kg, 08/02/24 10:21:00 EDT, Dry Weight Start Date: 09/01/24 Stop Date: 09/15/24 Status: Ordered Quantity: 28.0 Unit: capsule Repeat number: 1 gabapentin 300 mg oral capsule TAKE 1 CAPSULE BY MOUTH TWICE DAILY Start Date: 08/21/23 Status: Ordered Repeat number: 1 Glucosamine See Instructions, two tabs daily, 0 Refills, Maintenance, 06/04/13 6:44:24 PM EDT Start Date: 06/04/13 Status: Ordered Repeat number: 1 omeprazole 20 mg oral enteric coated capsule 1 capsule, By Mouth, 2 times a day, # 180 capsule, 1 Refills, Maintenance, 11/13/24 8:29:00 AM EST, [facility], 170.4, cm, 09/01/24 17:27:00 EDT, Height, 95, kg, 09/01/24 17:27:00 EDT, Dry Weight Start Date: 11/13/24 Status: Ordered Quantity: 180.0 Unit: capsule Repeat number: 2 Readi-Cat 2 Smoothie [place] 2% oral suspension See Instructions, Take as directed for CT scan, # 1 each, 0 Refills, Maintenance, 08/29/23 2:42:00 PM EDT, [facility], Partial fill upon patient request if the prescription is for a schedule II opioid drug., Take as directed for CT scan, 170.4, cm, 08/21/23 8:39:00 EDT, Height, 92, kg, 07/30/23 13:06:00 EDT, Dry Weight Start Date: 08/29/23 Status: Ordered Quantity: 1.0 Unit: each Repeat number: 1 terazosin 10 mg oral capsule 10 mg, 1, capsule, By Mouth, Daily at bedtime, Refills 0, Maintenance, 11/26/18 2:16:21 PM EST Start Date: 11/26/18 Status: Ordered Repeat number: 1 traMADol 50 mg oral tablet 1 tablet = 50 mg, By Mouth, Every 6 hours, PRN as needed for pain, 0 Refills, Maintenance, 06/11/17 7:14:03 AM EDT, Tablet Start Date: 06/11/17 Status: Ordered Repeat number: 1 zylflamend zylflamend, See Instructions, Refills 0, Maintenance, 1 x a day, 07/30/24 12:58:00 PM EDT, Supply Start Date: 07/30/24 Status: Ordered Repeat number: 1 Problem List Condition Confirmation Course Effective Dates Status H ealth Status Informant Asthma Confirmed Active BPH (benign prostatic hyperplasia) Confirmed Active Pacemaker Confirmed Active CAD (coronary artery disease) Confirmed Active Generalized anxiety disorder Confirmed Active Hypertension Confirmed Active ITP (idiopathic thrombocytopenic purpura) Confirmed Active Obese class I Confirmed Active JEANETTE (obstructive sleep apnea) Confirmed Active Social History Social History Type Response Smoking Status Never smoker entered on: 12/28/15 Sex Male Sex Representation Male (finding) Patient Care team information Care Team Personnel Name: Juve Chen Position: [facility] PCO Associate Professional Member Role: PCP Address: [address] [place] [address] [address] Telecom: Name: Jessica Gallegos RN Position: [facility] RN Member Role: Primary Care Nurse Name: Flower Joya RN Position: [facility] Onco RN Member Role: Primary Care Nurse Care Team Related Persons Name: GARY ROSENBERG Name: ALEXANDRA ROSENBERG Insurance Providers Guarantor name: MARLA CHET [facility] Plan Information #: 1 Payer: [facility] MEDICARE ADV PPO Member Number: NA Policy Number: NA Group Number: [id number]
--- OUTSIDE RECORDS SUMMARY | 2024-12-14 12:39 | XMS_ITS | Encounter Summary ---
Author Organization [facility] Address [address] [place] [address] Care Team Providers Care Marketing Automation Analyst Name Role Phone Juve Reynoso Primary Care Provider [phone] Reason for Visit * Reason Onset Date Comments Medication Problem 12/06/2024 Farxiga? Encounter Details Date Type Department Care Team ([facility] st Contact Info) Description 12/06/2024 Telephone [facility] - [facility] [address] [place] [phone] Alessandra Kenny MA Medication Problem (Farxiga?) Social History Tobacco Use Types Packs/Day Years [...] file Not on file Not on file documented as of this encounter Progress Notes * Alessandra Kenny MA - 12/07/2024 7:27 AM EST Spoke with patient verbalized understanding of message given. * Alessandra Kenny MA - 12/06/2024 1:31 PM EST Spoke with patient, said he has been taking Lasix 40mg and Farxiga 10mg all along. Patient said he hasn't had any swelling, and he feels pretty good. Patient has recently been prescribed an inhaler by his wind tunnel engineer, and PCP prescribed celebrex 200mg, baclofen 5mg TID, patient stopped Ibuprofen and metformin which was stopped by his PCP. * Alessandra Kenny MA - 12/06/2024 10:40 AM EST Patient calling asking if he needs to continue taking Farxiga, said it's a little expensive and doesn't want to purchase this and you tell him he can stop taking it sometime soon. Next appt with Bet01/28/2025. documented in this encounter Plan of Treatment Upcoming Encounters Date Type Department Care Team (Late st Contact Info) Description 12/16/2024 10:30 AM EST Ancillary Procedure [facility] Cardiology [facility] [address] [facility] [address] [place] [address] 01/28/2025 10:40 AM EDT Office Visit [facility] Cardiology [facility] [address] [place] [address] Cyndy Diego NP [address] [place] [address] 04/20/2025 10:30 AM EDT Office Visit Pulmonolgy - [place] [address] [place] [id number] Katherine Marin NP [address] [place] [address] documented as of this encounter Visit Diagnoses Not on filedocumented in this encounter Care Teams Marketing Automation Analyst Relationship Specialty Start Date End Date Juve Reynoso PA [address] [place] [address] PCP - General 09/07/24 documented as of this encounter
--- OUTSIDE RECORDS SUMMARY | 2024-12-14 12:39 | XMS_ITS | Data Portability ---
Author Organization [place] - [facility], Allergy Address [address] [address] Care Team Providers Care Color Stripper Name Role Phone MIKE CRAFT Primary Care Provider [phone] Assessment Encounter Date Assessment Date Assessment LastModified by Organization Details LastModified Time 10/13/2024 10/13/2024 Patient presents for re-evaluation of asymmetric hearing loss. Otologic exam unremarkable and audiometric testing demonstrates stability of the hearing loss on both sides. Discussed MRI of IACs would likely be of low yield. Patient does not desire to pursue this. Recommend dropping to annual audiometric testing. Patient understands the importance of calling sooner with perceived change. [email or web address] Not available 10/13/2024 16:36:39 Plan of Treatment Reminders Order Date Submit Date Provider Last Modified By Organization Details Last Modified Time Details Appointments None record ed. Lab None record ed. Referral None record ed. Procedures None record ed. Surgeries None record ed. Imaging None record ed. Medication Orders None record ed. Patient TargetsNo targets recorded. Patient InstructionsNo instructions recorded. Reason for Referral None Reported. Results Created Date Observation Date Name Description Value Unit Range Abnormal Flag Note LastModifiedBy Organization Detail LastModifiedTime 10/13/20 24 audio gram No observ ation record ed. BARCODE Not Available 2023 13:26:59 Result Notes None recorded. Problems Name Problem SNOMED Code Status Onset Date Resolution Date Notes Provider Name and Address Organization Details Recorded Time Obstructi ve sleep apnea syndrome 25042960 Active 2023 Obstructiv e sleep apnea (adult) (pediatric ); Note: Date Diagnosed: 04/08/2024 5:15 PM (G47.33) Not Available [employer] 02:45:02 Sensorine ural hearing loss of bilateral ears 335277252 Active 2023 Sensorineu ral hearing loss, bilateral; Note: Date Diagnosed: 04/08/2024 5:15 PM (H90.3) Not Available [facility] 4 02:45:05 Problem Notes None recorded. Procedures Surgical History Date Name Laterality Status Provider Name and Address Organization Details Recorded Time 10/13/2024 Comp Audio with Tymps (57722 & 09303) completed Latesha Ragsdale [place] - [facility] 10/13/2024 11:02:48 Imaging Results Imaging Date Name Status LastModified by Organiz ation Details LastModified Time 10/13/2024 audiogram completed BARCODE Information no t available 10/13/2024 13:26:59 Procedure Notes None recorded. Medical Equipment None Reported. Allergies Allergen ID Allergen Name Allergen Category Reaction Reaction Severity Criticality Documentation Date Start Date Code Code System Note Provider Name and Address Organization Details Recorded Time 951574 losartan Not available other Not available Not available 06/11/2024 86226 RxNorm React ion: Unkno wn; Not Available [facility] 00:35:31 Medications Name Sig Start Date Stop Date Status Note LastModified by Organization Details LastModified Time celecoxib 200 mg capsule TAKE 1 CAPSULE BY MOUTH ONCE DAILY NEEDED FOR MODERATE PAIN active Not Available Not Available No t Available furosemide 40 mg tablet active Not Available Not Available Not Available atorvastat in 40 mg tablet TAKE 1 TABLET BY MOUTH ONCE DAILY active Not Available Not Available No t Available metformin 500 mg tablet TAKE 1 TABLET BY MOUTH TWICE DAILY active Not Available Not Available No t Available fluticason e 250 mcg-salmet praveena 50 mcg/dose blistr powdr for inhalation INHALE 1 DOSE BY MOUTH TWICE DAILY active Not Available Not Available No t Available carvedilol 25 mg tablet TAKE 1 TABLET BY MOUTH TWICE DAILY WITH MEALS active Not Available Not Available No t Available ibuprofen 800 mg tablet TAKE 1 TABLET BY MOUTH EVERY 12 HOURS NEEDED FOR PAIN active Not Available Not Available No t Available gabapentin 400 mg capsule TAKE 1 CAPSULE BY MOUTH TWICE DAILY active Not Available Not Available No t Available tramadol 50 mg tablet active Medicatio n ID: [id number] Br and Name: tramadol Send Method: E-Prescri bed Subs Allowed: subs OK Medica tionGener icName: tramadol Not Available Not Available Not Available triamcinol one acetonide 0.1 % topical cream APPLY CREAM EXTERNALL Y TWICE DAILY FOR 7 DAYS active Not Available Not Available No t Available amlodipine 10 mg tablet TAKE 1 TABLET BY MOUTH ONCE DAILY active Not Available Not Available No t Available gabapentin 300 mg capsule TAKE 1 CAPSULE BY MOUTH TWICE DAILY active Not Available Not Available No t Available omeprazole 20 mg capsule,de layed release TAKE 1 CAPSULE BY MOUTH TWICE DAILY active Not Available Not Available No t Available furosemide 20 mg tablet TAKE 1 TABLET BY MOUTH TWICE DAILY FOR 14 DAYS active Not Available Not Available No t Available albuterol sulfate HFA 90 mcg/actuat ion aerosol inhaler active Medicatio n ID: [id number] Br and Name: albuterol sulfate S end Method: E-Prescri bed Subs Allowed: subs OK Medica tionGener icName: albuterol sulfate Not Available Not Available Not Available terazosin 10 mg capsule TAKE 1 CAPSULE BY MOUTH AT BEDTIME active Not Available Not Available No t Available finasterid e 5 mg tablet TAKE 1 TABLET BY MOUTH ONCE DAILY active Not Available Not Available No t Available mirtazapin e 7.5 mg tablet TAKE 1 TABLET BY MOUTH ONCE DAILY AT BEDTIME active Not Available Not Available No t Available Farxiga 10 mg tablet active Not Available Not Available No t Available baclofen 5 mg tablet TAKE 1 TABLET BY MOUTH THREE TIMES DAILY active Not Available Not Available No t Available Vitals Date Recorded Body height Body mass index (BMI) Body weight Provider Name and Address Organization Details Last Updated DateTime 10/13/2024 167.89 cm 31.9 kg/m2 88986.29 g Diane Johnson [place] - [facility] 10/13/2024 10:19:10 Social History None recorded. Functional Status None recorded. Mental Status None recorded. Family History Nothing Reported. Medical History No medical history recorded. Past Encounters Encounter ID Performer Location Encounter Start Date Encounter Closed Date Diagnosis/Indication Diagnosis SNOMED-CT Code Diagnosis ICD10 Code Diagnosis Note [id number] ANNALISE DIAZ MD [facility] [address] [address] 10/13/2024 10:00:03 10/13/2024 11:24:49 Sensorineural hearing loss of bilateral ears 789234010 H90.3 Audiologic al evaluation results:Ri ght ear:{{Norm al Normal through 2 kHz Mild M oderate Mo derately-s evere Savi re Profoun d [facility] lly normal through 3kHz#}} {{hearing hearing. s loping to a mild slopi ng to a moderate s loping to moderately severe slo ping to severe* sl oping to profound f lat high frequency low frequency mid frequency cookie bite kirk curve}} {{with sen sorineural hearing loss with* cond uctive hearing loss with mixed hearing loss with}} {{excellen t* good fa ir poor no measurable }} word recognitio n.Left ear:{{Norm al Normal through 2 kHz Mild M oderate Mo derately-s evere Savi re Profoun d Normal through 4 kHz#}} {{hearing hearing. s loping to a mild slopi ng to a moderate* sloping to moderately severe slo ping to severe slo ping to profound f lat high frequency low frequency mid frequency cookie bite kirk curve}} {{with sen sorineural hearing loss with* cond uctive hearing loss with mixed hearing loss with}} {{excellen t* good fa ir poor no measurable }} word recognitio n. Tympanomet ry:Right Ear:{{Type A* Type As Type Ad Type C Type C, shallow & rounded Ty pe B Type B with large volume Cou ld not maintain a hermetic seal}}Left Ear:{{Type A* Type As Type Ad Type C Type C, shallow & rounded Ty pe B Type B with large volume Cou ld not maintain a hermetic seal}} Health Concerns Section Related Observation LastModified by Organization Detai ls LastModified Time None Recorded Concern Status LastModified by Organization Details LastModified Time None Recorded Advance Directives Directive None Recorded Payers Encounter Date Sequence Insurance Name Policy Number Policy Buchanan Covered Member ID Buchanan Member ID Guarantor Name 10/13/2024 1 [facility] (MEDICARE REPLACEMENT/ ADVANTAGE - PPO) [id number] Lui Priest [id number] Lui Priest Notes Date Note Type Note Provider Name and Address Organization Details Recorded Time 10/13/2024 text/html 74-year-old male presents for re-evaluation. Initially referred for asymmetric sensorineural hearing loss affecting the right ear more than the left. At last visit in March, the asymmetry was found to be stable and patient elected observation over MRI. Since that time he has not noted any change in hearing. There has been no otalgia and no otorrhea. ANNALISE DIAZ MD [address] [place] [address], [place], [address], [facility] 10/13/2024 17:44:46
== END 2024-12-14 12:27 | disposition home or self-care (01) ==
PROVIDERS: PCP Student in an Organized Health Care Education/Training Program; Visit Provider Nurse Practitioner Family
DX: N40.0 Benign prostatic hyperplasia without lower urinary tract symptoms (principal); N40.1 Benign prostatic hyperplasia with lower urinary tract symptoms; R39.12 Poor urinary stream; Z13.9 Encounter for screening, unspecified
CPT/HCPCS: 99213; G2211

== ENCOUNTER → 2024-12-14 11:39 | Outpatient (BNVA) | payer MEDICARE, SELFPAY | PROVIDERS: PCP Student in an Organized Health Care Education/Training Program; Visit Provider Nurse Practitioner Family | DX: N40.1 Benign prostatic hyperplasia with lower urinary tract symptoms (principal); R39.12 Poor urinary stream | CPT/HCPCS: 51798; 81003; 99212 ==

== ENCOUNTER 2025-06-08 08:24 | Outpatient (REF) | payer MEDICARE, SELFPAY ==
--- OUTSIDE RECORDS SUMMARY | 2025-06-08 08:35 | XMS_ITS ---
Author Name [facility] Organization Unknown Care Team Organization Name Specialty Phone Email Start Date End Da te [facility] 09/17/2022 06/28/2024
--- OUTSIDE RECORDS SUMMARY | 2025-06-08 08:35 | XMS_ITS | Clinical Summary ---
Author Organization [address] [place] [address] Address [address] [place] [address] Phone Care Team Providers Care Family Engagement Specialist Name Role Phone Juve Reynoso Primary Care Provider + [phone] Allergies Active Allergy Reactions Criticality Noted Date Comments Losartan High 08/18/2019 Angioedema-still being evaluated Medications albuterol HFA (PROAIR HFA ; PROVENTIL HFA ; VENTOLIN HFA) 90 mcg/actuation inhaler Inhale 2 Puffs into the lungs every 4 hours as needed for Cough, Wheezing or Shortness of Breath (or chest tighness). This is a Rescue Medication not exceed 12 inhalations/24 hrs. 01/21/20 24 Active aspirin 81 mg EC tablet Take 81 mg by mouth daily. Active atorvastatin (LIPITOR) 40 mg tablet Take 1 Tablet by mouth. 09/26/20 23 Active celecoxib (CeleBREX) 200 mg capsule Take 1 Capsule by mouth daily. Active EPINEPHrine (EpiPen 2-Bladimir) 0.3 mg/0.3 mL injection Inject 0.3 mg into the muscle. 10/09/20 23 Active finasteride (PROSCAR) 5 mg tablet Take 1 Tablet by mouth every other day. 05/08/20 23 Active gabapentin (NEURONTIN) 400 mg capsule Take 1 Capsule by mouth 2 Times Daily. Active glucosamine ho 2KCl-chondroit 750-600 mg tablet Take by mouth 2 Times Daily. Active DAILY MULTI-VITAMIN ORAL Take 1 Tablet by mouth daily. Active omeprazole (PriLOSEC) [address] capsule Take 1 Capsule by mouth daily. Active terazosin (HYTRIN) 10 mg capsule 1 Cap daily. 05/03/20 19 Active traMADoL (ULTRAM) 50 mg tablet 07/17/20 17 Active carvediloL (COREG) 25 mg tablet Take 1 tablet (25 mg total) by mouth 2 (two) times a day with meals. 180 each 3 09/16/20 24 025 Active Farxiga 10 mg tablet Take 1 tablet (10 mg total) by mouth 1 (one) time each day. 90 tablet 2 03/15/20 25 Active furosemide (LASIX) 20 mg tablet Take 1 tablet (20 mg total) by mouth 1 (one) time each day. 90 each 3 04/05/20 25 026 Active fluticasone-sa lmeterol (ADVAIR DISKUS) 250-50 mcg/dose diskus inhaler INHALE 1 DOSE BY MOUTH TWICE DAILY 180 each 05/23/20 25 Active fluticasone-sa lmeterol (ADVAIR DISKUS) 250-50 mcg/dose diskus inhaler INHALE 1 DOSE BY MOUTH TWICE DAILY 180 each 03/01/20 25 025 Discontinued Active Problems Problem Noted Date Diagnosed Date Venous insufficiency 02/10/2025 Assessment & Plan (02/10/2025 8:48 PM EDT): No edema on exam today; the patient was encouraged to continue using compression stockings daily as well as following a low-sodium diet and elevating his legs as able. Chronic diastolic heart failure (CMS/HCC V24, CM S/HCC V28) 09/09/2024 Assessment & Plan (02/10/2025 8:48 PM EDT): The patient appears euvolemic on exam today. He reports ongoing shortness of breath but only with significant exertion as well as chest tightness that occurs when he is anxious; these are ongoing and unchanged for many years and do not appear to be indicative of any overt heart failure. We had a lengthy discussion today regarding continuing his medical therapies for heart failure, mainly Farxiga and furosemide. He is currently doing very well and ultimately through shared decision making, he will continue his current regimen including carvedilol, Farxiga, and furosemide. We will update a metabolic panel to reevaluate his renal function and electrolytes. If he decides he does not want to continue any of his medications, he will call our office first so that we can make a plan to follow him closely to ensure no worsening heart failure. We discussed risk reduction through lifestyle modifications including healthy diet, routine exercise, and weight management as well . We reviewed heart failure management including low-sodium diet, symptom surveillance, daily weights, and medication compliance. I've asked the patient to call if they develop worsening symptoms of heart failure such as increased shortness of breath, new or worsening cough, increased swelling in the legs or ankles, or weight gain of more than 2 pounds in one day or 4 pounds in one week. Orders: Basic metabolic panel; Future Lower extremity edema 09/07/2024 Obesity due to excess calories with serious raudel rbidity 02/21/2022 Assessment & Plan (02/10/2025 8:48 PM EDT): Patient is obese. Approaches towards weight loss are discussed, including burning more calories than one takes in by portion control and regular exercise with an emphasis on duration rather than intensity. Obstructive sleep apnea 02/21/2022 Overview (09/14/2024): Last [...] and he continues to decline further intervention. Assessment & Plan (02/10/2025 8:48 PM EDT): We had an in-depth discussion regarding the potential long-term negative implications of untreated sleep apnea as a relates to the patient's cardiovascular health and he verbalizes understanding. Complete heart block (CMS/HCC V24, CMS/HCC V28) 07/25/2021 Overview (09/14/2024): Last Assessment & Plan: Pacemaker in place, noted to be functioning properly on last check 06/29/2023. Continue with with device checks at the device clinic. Assessment & Plan (02/10/2025 8:48 PM EDT): Status post pacemaker placement; continue with in office and remote device checks as per device clinic protocol. Heart murmur 07/25/2021 Cardiac pacemaker in situ 12/30/2019 Assessment & Plan (02/10/2025 8:48 PM EDT): Asthma 10/04/2019 Stage 3 chronic kidney disease (CMS/HCC V24, CMS /HCC V28) 10/04/2019 Overview (09/14/2024): Last Assessment & Plan: [...] as needed. Return for any worsening symptoms. Assessment & Plan (02/10/2025 8:48 PM EDT): We discussed that his shortness of breath is likely multifactorial due at leas tin part to deconditioning and obesity; he admits to being quite sedentary and was encouraged to increase his activity level as tolerated to assist with improving endurance. He agrees to make efforts towards doing so. Adjustment disorder with mixed anxiety and depre ssed mood 08/14/2017 Coronary artery disease invo lving prairie band coronary artery of prairie band heart without angina pectoris 06/16/2017 Overview (09/14/2024): [...] rest, or if they were to faint. Assessment & Plan (02/10/2025 8:48 PM EDT): As above; no new or worsening symptoms to suggest underlying ischemia. Chest pain does not occur with exertion and his shortness of breath with exertion is unchanged form previous. He admits that he is quite sedentary given his 's recent orthopedic issues; he was encouraged to increase his activity as tolerated, calling our office for any worsening exertional symptoms or seeking urgent medical attention as appropriate. Will continue cardioprotective medical therapies including carvedilol, atorvastatin, and daily ASA without change. We discussed that NSAIDs (including Celebrex) can often aggravate cardiovascular disease and he was strongly encouraged to reconsider his pain management regimen. Update labs. The patient was advised to seek emergent medical attention by calling 911 if they were to develop severe dyspnea, chest pain that did not resolve with rest, or if they were to faint. Orders: Basic metabolic panel; Future Lipid panel; Future Subjective memory complaints 10/23/2016 Major depressive disorder, r ecurrent, moderate (CMS/HCC V24, CMS/HCC V28) 07/19/2015 Irritable bowel syndrome 09/20/2013 C. difficile [...] check has been completed; no changes today. Assessment & Plan (02/10/2025 8:48 PM EDT): Blood pressure is mildly elevated in office today; the patient feels as though it is likely due to his irritation and anxiety. Blood pressures have historically been in the range of 120s - 130s/60s. Continue current antihypertensive regimen including carvedilol and furosemide. Update labs. Orders: Basic metabolic panel; Future Magnesium; Future Mixed hyperlipidemia 09/06/2008 Overview (09/14/2024): Last Assessment & Plan: We will update labs Assessment & Plan (02/10/2025 8:48 PM EDT): No recent lipid panel on file; LDL goal for this patient was a history of coronary artery disease is less than 70. Will update lipid panel and continue to readdress as indicated. Continue atorvastatin. Orders: Lipid panel; Future Diverticulosis 01/01/2007 Overview (09/14/2024): 2012 Diverticulitis - partial bowel resection Esophageal reflux 10/14/2005 Hypersomnia with sleep apnea 10/14/2005 Overview (09/14/2024): Pt not interested in cpap Encounters Date Type Department Care Team Description 04/20/2025 10:35 AM EDT Office Visit Pulmonolgy [facility] [address] [place] [id number] Katherine Marin NP Moderate persistent asthma without complication (Primary Dx); SOB (shortness of breath); Obstructive sleep apnea; Gastroesophageal reflux disease, unspecified whether esophagitis present; Chronic diastolic heart failure (CMS/HCC V24, CMS/HCC V28) 04/05/2025 Telephone [facility] Card[facility] [address] [place] [address] Rogelio No MA 03/25/2025 1:40 PM EDT Ancillary Procedure [facility] [address] [place] [address] from Last 3 Months Immunizations Name Administration [...] microscopic colitis. OTHER SURGICAL HISTORY 08/2013 PROCEDURE: IN COLECTOMY PARTIAL W/ANASTOMOSIS; COMMENT: sigmoid colectomy for diverticulitis 2012 dr stone COLONOSCOPY 2003 PROCEDURE: HISTORICAL COLONOSCOPY; COMMENT: 15 mm Sessile tubular adenoma. COLONOSCOPY 2006 PROCEDURE: HISTORICAL COLONOSCOPY; COMMENT: No polyps COLONOSCOPY 2015 PROCEDURE: HISTORICAL COLONOSCOPY; COMMENT: 8 mm right colon polyp: tubular adenoma. CARDIAC CATHETERIZATION 2017 PROCEDURE: HISTORICAL CARDIAC CATH; COMMENT: 65% LAD TONSILLECTOMY 1954 PROCEDURE: HISTORICAL TONSILLECTOMY OTHER SURGICAL HISTORY 04/26/2019 PROCEDURE: IN LASER VAPORIZATION OF PROSTATE FOR URINE FLOW; [...] syndrome Major depressive disorder, r ecurrent, moderate (CMS/HCC V24, CMS/HCC V28) 07/19/2015 DX:Major depressiv e disorder, recurrent, moderate ([facility]) Subjective memory complaints 10/23/2016 DX: Subjective memory complaints SOB (shortness of breath) 08/26/2018 DX:SOB (shortness of breath); COMMENT: Chronic, ct revealed small bilateal pleural effusion, refer to pulm pending and pfts CKD (chronic kidney disease) stage 3, GFR 30-59 ml/min (CMS/HCC V24, CMS/HCC V28) 10/04/2019 DX:CKD (chronic kidney disea se) stage 3, GFR 30-59 ml/min ([facility]) Asthma 10/04/2019 DX:Asthma Diverticulosis 01/01/2007 DX:Diverticulosi s; [...] Packs/Day Years Used Date Smoking Tobacco: Never Passive Smoke Exposure: Never Smokeless Tobacco: Never Alcohol Use Standard Drinks/Week Comments Yes 0 (1 standard drink = 0.6 oz pur e alcohol) Sex and Gender Information Value Date Recorded Sex Assigned at Not on file Legal Sex Male 10:11 PM EST Gender Identity Not on file Sexual Orientation Not on file Obstetrics History Last Filed Vital Signs Vital Sign Reading Time Taken Comments Blood Pressure 126/70 04/20/2025 10:27 AM EDT Pulse 55 04/20/2025 10:27 AM EDT Temperature 35.8 C (96.5 F) 04/20/2025 10:27 AM EDT Respiratory Rate 17 04/20/2025 10:27 AM EDT Oxygen Saturation 95% 04/20/2025 10:27 AM EDT Inhaled Oxygen Concentration - - Weight 88.1 kg (194 lb 3.2 oz) 04/20/2025 10:27 AM EDT Height 172.7 cm (5' 8 ) 04/20/2025 10:27 AM EDT Body Mass Index 29.53 04/20/2025 10:27 AM EDT Plan of Treatment Upcoming Encounters Date Type Department Care Team (Late st Contact Info) Description 06/09/2025 3:10 PM EDT Office Visit [facility] [address] [place] [address] Cyndy Diego NP [address] [place] [address] 12/19/2025 11:00 AM EST Ancillary Procedure [facility] [address] [place] [address] 04/20/2026 11:00 AM EDT Office Visit Pulmonolgy [place] [address] [place] [phone] Katherine Marin NP [address] [place] [address] Health Maintenance Due Date Last Done Comments Zoster Vaccines (1 of 2) 12/09/2013 10/14/2013 Falls Risk Assessment 10/19/2022 Medicare Annual Wellness Visit 10/19/2022 Social Influencers of Health Screening 10/19/2022 RSV Immunization Adult Patients (1 - 1-dose 75+ series) 2024 Depression Screening 11/10/2024 COVID-19 Vaccine (7 - Moderna risk season) 2025 08/04/2024, 08/14/2023, 09/13/2022, Additional history exists Influenza Vaccine (#1) 2025 Hypertension/CHF/CAD Annual BMP Blood Test 02/11/2026 02/11/2025, 09/14/2024, 08/26/2022 DTaP,Tdap,and Td Vaccines (3 - Td or Tdap) 09/23/2028 09/23/2018, 07/20/2008 Cholesterol Screening (Lipid Panel) 02/11/2030 02/11/2025, 08/26/2022 Hepatitis C Screening Completed 10/15/2013 Pneumococcal Vaccine: 50+ Years Completed 06/30/2015, 04/14/2014 Colorectal Cancer Screening: Colonoscopy Discontinued 07/19/2022 HIB Vaccines Aged Out No longer eligi [...] patient's age to complete this topic Meningococcal B Vaccine Aged Out No l onger eligible based on patient's age to complete this topic RSV Immunization Patients Under 20 months Aged Out No longer eligible based on patient's age to complete this topic Varicella Vaccines Aged Out No longer eligible based on patient's age to complete this topic Medical Devices Implanted Type Area Pv Installer Tech Device Identifier Shelf Expiration Date Model / Serial / Lot Bsci-Crm [id number] Implanted: (Quantity not on file) Cardiac Pacemaker [employer] MGMT [id number] / [id number] / Procedures Procedure Name Priority Date/Time Associated Diagnosis Comments CARDIAC DEVICE CHECK- REMOTE- MURJ Routine 03/25/2025 1:36 PM EDT BASIC METABOLIC PANEL Routine 02/11/2025 8:23 AM EDT Chronic diastolic heart failure (CMS/HCC V24, CMS/HCC V28) Coronary artery disease involving prairie band coronary artery of prairie band heart without angina pectoris Essential hypertension LIPID PANEL Routine 02/11/2025 8:23 AM EDT Coronary artery disease involving prairie band coronary artery of prairie band heart without angina pectoris Mixed hyperlipidemia HM COLONOSCOPY Routine 07/19/2022 HM HEPATITIS C SCREENING Routine 10/15/2013 from Last 3 Months or Most Recently Relevant to Health Maintenance Results * Cardiac device check - Remote- MURJ (03/25/2025 1:36 PM EDT) Date Time Interrogation Session [id number] CV DEVICE CHECK Type Interrogation Session Remote Scheduled CV DEVICE CHECK Implantable Pulse Generator Pv Installer Tech BSX CV DEVICE CHECK Implantable Pulse Generator Type IPG CV DEVICE CHECK Implantable Pulse Generator Model L111 CV DEVICE CHECK Implantable Pulse Generator Serial Number [id number] CV DEVICE CHECK Implantable Pulse Generator Implant Date 20191204 CV DEVICE CHECK Battery Remaining Percentage 73.00 CV DEVICE CHECK Battery Remaining Longevity 48.0 CV DEVICE CHECK Battery Status Beginning of Service CV DEVICE CHECK Eddie Statistic RA Percent Paced 32.00 CV DEVICE CHECK Eddie Statistic RV Percent Paced 100.00 CV DEVICE CHECK Atrial Tachy Statistic AT/AF Byers Percent 0.00 CV DEVICE CHECK Lead Channel Sensing Intrinsic Amplitude 4.700 CV DEVICE CHECK Lead Channel Setting Sensing Sensitivity 0.25 CV DEVICE CHECK Lead Channel Impedance Value 717 CV DEVICE CHECK Lead Channel Pacing Threshold Amplitude 0.600 CV DEVICE CHECK Lead Channel Pacing Threshold Pulse Width 0.4 CV DEVICE CHECK Lead Channel RA Pacing Threshold Date 2025-03-21 CV DEVICE CHECK Lead Channel Setting Pacing Amplitude 2.000 CV DEVICE CHECK Lead Channel Setting Pacing Pulse Width 0.4 CV DEVICE CHECK Lead Channel Setting Sensing Sensitivity 0.60 CV DEVICE CHECK Lead Channel Impedance Value 753 CV DEVICE CHECK Lead Channel Pacing Threshold Amplitude 0.900 CV DEVICE CHECK Lead Channel Pacing Threshold Pulse Width 0.4 CV DEVICE CHECK Lead Channel RV Pacing Threshold Date 2025-03-21 CV DEVICE CHECK Lead Channel Setting Pacing Amplitude 1.600 CV DEVICE CHECK Lead Channel Setting Pacing [...] 1 CV DEVICE CHECK Date of Service 2025-04-02 CV DEVICE CHECK Anatomical Region Laterality Modality Device Interroga tion 03/23/2025 2:51 AM EDT Impressions 03/25/2025 12:03 PM EDT Normal Remote: No Events * Normal Device Function * Alerts or events: None * Battery: Battery is at 73%, 4.00 yrs * Sensing, impedance and thresholds reviewed * Programmed parameters reviewed * Presenting rhythm reviewed * Heart Rate Histograms reviewed * No significant changes noted Narrative Procedure Note Omer Sidhu MD - 03/25/2025 IMPRESSION: Normal Remote: No Events * Normal Device Function * Alerts or events: None * Battery: Battery is at 73%, 4.00 yrs * Sensing, impedance and thresholds reviewed * Programmed parameters reviewed * Presenting rhythm reviewed * Heart Rate Histograms reviewed * No significant changes noted Omer Sidhu MD CV IMPLANTABLE CARDIAC DEVICE PROCEDURES Final Result * (ABNORMAL) Lipid panel (02/11/2025 8:23 AM EDT) Cholesterol Total 105 100 - 199 mg/dL [facility] Triglycerides 96 0 - 149 mg/dL [facility] HDL Cholesterol 35(L) >39 mg/dL [facility] VLDL Cholesterol Calculated 19 5 - 40 mg/dL [facility] LDL Chol Calc (NIH) 51 0 - 99 mg/dL [facility] Blood Venous blood specimen / Unknown 02/11/2025 8:23 AM EDT 02/11/2025 Narrative [facility] - 02/11/2025 11:06 PM EDT Performed at: 01 - [facility] [address] [id number] Animal Rides Manager: Maxine Clayton MD, Phone: [phone] Cyndy Diego NP LAB BLOOD ORDERABLES Final Result [facility] * (ABNORMAL) Basic metabolic panel (02/11/2025 8:23 AM EDT) Pathologist [facility] Glucose 121(H) 70 - 99 mg/dL [facility] Blood Urea Nitrogen (BUN) 30(H) 8 - 27 mg/dL [facility] Creatinine 1.48(H) 0.76 - 1.27 mg/dL [facility] 1 eGFR 49(L) >59 mL/min/1.7 3 [facility] BUN/Creatinine Ratio 20 10 - 24 [facility] 1 Sodium 143 134 - 144 mmol/L [facility] Potassium 4.1 3.5 - 5.2 mmol/L [facility] 1 Chloride 108(H) 96 - 106 mmol/L [facility] 1 Carbon Dioxide 22 20 - 29 mmol/L [facility] 1 Calcium 8.8 8.6 - 10.2 mg/dL [facility] 1 Blood Venous blood specimen / Unknown 02/11/2025 8:23 AM EDT 02/11/2025 Narrative [facility] - 02/11/2025 11:06 PM EDT Performed at: - [facility] [address] [id number] Animal Rides Manager: Maxine Clayton MD, Phone: [phone] Cydny Diego [employer] LAB BLOOD ORDERABLES Final Result [facility] * Colonoscopy (07/19/2022) Pathologist [facility] Colonoscopy No Interpretation , Abstracted Anatomical Region Laterality Modality Other us Historical Provider HEALTH MAINTENANCE Final Result * Hepatitis C Screening (10/15/2013) Hepatitis C Screening Abstracted Historical Provider HEALTH MAINTENANCE Final Result from Last 3 Months or Most Recently Relevant to Health Maintenance Insurance [employer] Advance Directives Documents on File Type Date Recorded Patient Vendor Representatives Expl anation Health Care Decision (hx) 07/04/2018 AD JOHNSON DIRECTIVE Health Care Decision (hx) 07/04/2018 AD JOHNSON DIRECTIVE Health Care Decision (hx) 07/04/2018 AD JOHNSON DIRECTIVE Health Care Decision (hx) 07/04/2018 AD JOHNSON DIRECTIVE Health Care Decision (hx) 07/04/2018 AD JOHNSON DIRECTIVE Health Care Decision (hx) 07/04/2018 AD JOHNSON DIRECTIVE Health Care Decision (hx) 07/04/2018 AD JOHNSON DIRECTIVE Care Teams Family Engagement Specialist Relationship Specialty Start Date End Date Juve Reynoso PA [address] [place], [place] PCP - General 09/07/24
[2025-06-08 10:47] LABS: Prostate Specific Antigen 0.44 ng/mL (<0.05-4.0)
== END 2025-06-08 08:25 | disposition home or self-care (01) ==
LOC: HO.HMGCLDS 08:24
PROVIDERS: PCP Student in an Organized Health Care Education/Training Program; Visit Provider Nurse Practitioner Family
DX: N40.1 Benign prostatic hyperplasia with lower urinary tract symptoms (principal); R39.12 Poor urinary stream
CPT/HCPCS: 36415; 84153

== ENCOUNTER 2025-06-15 10:17 | Outpatient (AMB) | payer MEDICARE, SELFPAY ==
--- OUTSIDE RECORDS SUMMARY | 2025-06-09 15:10 | XMS_ITS | Encounter Summary ---
Author Organization [facility] Address [address] [place] [address] Care Team Providers Care Supervisor Power Reactor Name Role Phone Juve Reynoso Primary Care Provider [phone] Reason for Visit * Reason Comments Follow-up Encounter Details Date Type Department Care Team (Late st Contact Info) Description 06/09/2025 3:10 PM EDT Office Visit [facility] - [address] [place] [id number] Cyndy Diego, DEEDEE [address] [place] [address] Chronic diastolic heart failure (CMS/HCC V24, CMS/HCC V28) (Primary Dx); SOB (shortness of breath); Coronary artery disease involving bad river band coronary artery of bad river band heart without angina pectoris; Mixed hyperlipidemia; Essential hypertension; Complete heart block (CMS/HCC V24, CMS/HCC V28); Cardiac pacemaker in situ; Venous insufficiency Social History Tobacco Use Types Packs/Day Years [...] on file Sexual Orientation Not on file documented as of this encounter Last Filed Vital Signs Vital Sign Reading Time Taken Comments Blood Pressure 132/65 06/09/2025 3:06 PM EDT Pulse 57 06/09/2025 3:06 PM EDT Temperature - - Respiratory Rate - - Oxygen Saturation 98% 06/09/2025 3:06 PM EDT Inhaled Oxygen Concentration - - Weight 88.5 kg (195 lb) 06/09/2025 3:06 PM EDT Height 172.7 cm (5' 8 ) 06/09/2025 3:06 PM EDT Body Mass Index 29.65 06/09/2025 3:06 PM EDT documented in this encounter Progress Notes * Cyndy Diego NP - 06/09/2025 3:10 PM EDTAssociated Problem(s): Essential hypertension Blood pressure is favorable on current antihypertensive regimen; continue carvedilol and furosemidein addition to terazosin. Given his history of CKD, we will update a metabolic panel in July when he sees his PCP for his annual exam. Orders: Basic metabolic panel; Future * Cyndy Diego NP - 06/09/2025 3:10 PM EDTAssociated Problem(s): Chronic diastolic heart failure (CMS/HCC V24, CMS/HCC V28) The patient appears euvolemic on exam today. He reports ongoing shortness of breath but only with significant exertion and which he reports is at his typical baseline (he is followed by pulmonology for asthma). Continue current GDMT for heart failure including carvedilol and Farxiga in addition to furosemide. We will update a metabolic panel sometime around July when he sees his PCP for his annual exam. We discussed risk reduction through lifestyle modifications including healthy diet, routine exercise, and weight management as well . We reviewed heart failure management including low-sodium diet, symptom surveillance, daily weights, and medication compliance. I've asked the patient tocall if they develop worsening symptoms of heart failure such as increased shortness of breath, newor worsening cough, increased swelling in the legs or ankles, or weight gain of more than 2 pounds in one day or 4 pounds in one week. * Cyndy Diego NP - 06/09/2025 3:10 PM EDTAssociated Problem(s): Complete heart block (CMS/HCC V24, CMS/HCC V28) Status post pacemaker placement; continue with in office and remote device checks as per device clinic protocol. * Cyndy Diego NP - 06/09/2025 3:10 PM EDTAssociated Problem(s): Coronary artery disease involving bad river band coronary artery of bad river band heart with out angina pectoris As above; no new or worsening symptoms to suggest underlying ischemia. He reports a burning sensation intermittently over his pacemaker site that has been present for the past 5 to 6 years and is unchanged from previous but otherwise denies any chest pain. His shortness of breath with exertion is unchanged form previous. Continue cardioprotective medical therapies including carvedilol, atorvastatin, and daily ASA without change. We reviewed that NSAIDs (including Celebrex) can often aggravate cardiovascular disease and he was strongly encouraged to reconsider his pain management regimen. The patient was advised to seek emergent medical attention by calling 911 if they were to develop severe dyspnea, chest pain that did not resolve with rest, or if they were to faint. * Cyndy Diego NP - 06/09/2025 3:10 PM EDTAssociated Problem(s): Venous insufficiency No edema on exam today; the patient was encouraged to continue using compression stockings daily aswell as following a low-sodium diet and elevating his legs as able. * Cyndy Diego NP - 06/09/2025 3:10 PM EDTAssociated Problem(s): Mixed hyperlipidemia LDL goal for this patient was a history of coronary artery disease is less than 70; his most recentlipid panel was completed 02/11/2025 showing an LDL of 51 which is at goal. Continue atorvastatin. * Cyndy Diego NP - 06/09/2025 3:10 PM EDTAssociated Problem(s): Cardiac pacemaker in situ * Cyndy Diego NP - 06/09/2025 3:10 PM EDTAssociated Problem(s): SOB (shortness of breath) * Cyndy Diego NP - 06/09/2025 3:10 PM EDT Images from the original note were not included. [facility] PRIMARY BLANKET CUTTING MACHINE OPERATOR: Jeanmarie Denise MD PCP: MARIE Hua HPI: Lui Priest is a 75 y.o. old male with with a past medical history of CAD, AV block status post pacemaker implantation, heart murmur, HFpEF, CKD, asthma, hypertension, hyperlipidemia, JEANETTE noncompliant with CPAP, CKD, obesity, ITP (followed by hematology, Dr. West-no treatment indicated). The patient was last seen by Dr. Denise in 08/2024. He has a history of shortness of breath with exertion for which testing has been unremarkable. His last stress echo was in 2019; he exercised almost 5 minutes and achieved 99% of his maximum predicted heart rate. Resting echo images showed borderline LVH with normal systolic function, normal augmentation of contractility. In 2019, he was noted to have complete heart block and underwent pacemaker implantation. He is unable to tolerate the CPAP mask and his JEANETTE has been untreated for many years; he does not want another sleep study and declines pulmonology referral for further evaluation of this. He underwent cardiac catheterization in 2020 showing 50% stenosis in the LAD; IFR in the LAD was n egative therefore symptoms of dyspnea were likely not cardiac and he was treated medically. When he last saw Dr. Denise in August, he was reporting worsening shortness of breath with exertion as well as lower extremity edema. He was seen by pulmonology, undergoing PFTs, 6 minute walk test, xrays, CT scan. He had been trialed on a short course of Lasix due to cellulitis secondary to his edema. Echocardiogram dated 09/08/2024 showed normal LV chamber size with mild concentric LVH, normal regional wall motion and left ventricular systolic function with an EF of 55 to 60%; evidence of grade 2diastolic dysfunction. Mildly dilated left atrium, normal right atrium. Mildly enlarged RV size with normal systolic function. Pacer wire seen in the right heart. 1+ AI, trace MR, trace TR with normal estimated PASP. When compared to September 2021, there was no significant change except for the evidence of diastolic dysfunction. He was subsequently started on Farxiga and Furosemide increased to 40 mg. Bilateral lower extremity venous duplex completed on 10/05/2024 showed clinically significant reflux only in the left GSV. His last device check on 04/02/2025 revealed normal device function. No alerts. A paced 32%, V [id number] 0% AT/AF burden. He presents today for follow up of CAD, AV block status post pacemaker implantation, HFpEF, hypertension, hyperlipidemia. He reports that he has been doing well since her last visit; he is staying active on a regular basis, reporting that he is unable to sit still and is constantly fixing things or building things. Shortness of breath is at his typical baseline due to underlying asthma; he continues to follow with pulmonology. He reports an intermittent burning sensation at the site of his device incision which has been there for the past 5 to 6 years and is unchanged from previous; otherwisehe denies any chest pain or pressure at rest or with exertion. If he gets up too quickly, he will get a little lightheaded so he is careful about this and has not had any falls; no syncope or presyncope and this is unchanged from previous. He has not recently been wearing his compression stockings as he is unable to tolerate them in the extreme heat but he has not had any significant peripheral edema; he continues to follow a low-salt diet and weights have been stable at 190. He has actually lost about 7 pounds from his last visit in February 2025. No palpitations. No orthopnea or PND; he is still not wearing his CPAP. ACTIVE MEDICATIONS: Outpatient Medications Marked as Taking for the 06/09/25 encounter (Office Visit) with Cyndy Diego NP Medication Sig Dispense Refill albuterol HFA (PROAIR HFA ; PROVENTIL HFA ; VENTOLIN HFA) 90 mcg/actuation inhaler Inhale 2 Puffs into the lungs every 4 hours as needed for Cough, Wheezing or Shortness of Breath (or chest tighness). This is a Rescue Medication not exceed 12 inhalations/24 hrs. aspirin 81 mg EC tablet Take 81 mg by mouth daily. atorvastatin (LIPITOR) 40 mg tablet Take 1 Tablet by mouth. carvediloL (COREG) 25 mg tablet Take 1 tablet (25 mg total) by mouth 2 (two) times a day with meals. 180 each 3 celecoxib (CeleBREX) 200 mg capsule Take 1 Capsule by mouth daily. DAILY MULTI-VITAMIN ORAL Take 1 Tablet by mouth daily. Farxiga 10 mg tablet Take 1 tablet (10 mg total) by mouth 1 (one) time each day. 90 tablet 2 finasteride (PROSCAR) 5 mg tablet Take 1 Tablet by mouth every other day. fluticasone-salmeterol (ADVAIR DISKUS) 250-50 mcg/dose diskus inhaler INHALE 1 DOSE BY MOUTH TWICE DAILY 180 each 0 furosemide (LASIX) 20 mg tablet Take 1 tablet (20 mg total) by mouth 1 (one) time each day. 90 each3 gabapentin (NEURONTIN) 400 mg capsule Take 1 Capsule by mouth 2 Times Daily. glucosamine ho 2KCl-chondroit 750-600 mg tablet Take by mouth 2 Times Daily. (Patient taking differently: 2 tablets 1 (one) time each day.) omeprazole (PriLOSEC) [address] capsule Take 1 Capsule by mouth daily. terazosin (HYTRIN) 10 mg capsule 1 Cap daily. traMADoL (ULTRAM) 50 mg tablet PAST MEDICAL HISTORY: Patient Active Problem List Diagnosis Adjustment disorder with mixed anxiety and depressed mood Asthma BPH (benign prostatic hyperplasia) C. difficile colitis Cardiac pacemaker in situ Chronic diastolic heart failure (CMS/HCC V24, CMS/HCC V28) Complete heart block (CMS/HCC V24, CMS/HCC V28) Coronary artery disease involving bad river band coronary artery of bad river band heart without angina pectoris Diverticulosis Esophageal reflux Essential hypertension Fibromyalgia Heart murmur Hypersomnia with sleep apnea Impaired fasting glucose Irritable bowel syndrome Lower extremity edema Major depressive disorder, recurrent, moderate (CMS/HCC V24, CMS/HCC V28) Mixed hyperlipidemia Obesity due to excess calories with serious comorbidity Obstructive sleep apnea SOB (shortness of breath) Stage 3 chronic kidney disease (CMS/HCC V24, CMS/HCC V28) Subjective memory complaints Venous insufficiency ALLERGIES: Allergies Allergen Reactions Losartan Angioedema-still being evaluated SOCIAL HISTORY: Social History Tobacco Use Smoking status: Never Passive exposure: Never Smokeless tobacco: Never Substance Use Topics Alcohol use: Yes PHYSICAL EXAM: Vitals: 06/09/25 1506 BP: 132/65 BP Location: Left arm Patient Position: Sitting BP Cuff Size: Large adult Pulse: 57 SpO2: 98% Weight: 88.5 kg (195 lb) Height: 1.727 m (68 ) Body mass index is 29.65 kg/m??. Physical Exam Vitals reviewed. Constitutional: General: He is not in acute distress. Appearance: Normal appearance. He is obese. He is not ill-appearing. HENT: Head: Normocephalic and atraumatic. Mouth/Throat: Mouth: Mucous membranes are moist. Eyes: General: No scleral icterus. Extraocular Movements: Extraocular movements intact. Pupils: Pupils are equal, round, and reactive to light. Neck: Vascular: Normal carotid pulses. No carotid bruit, hepatojugular reflux or JVD. Cardiovascular: Rate and Rhythm: Normal rate and regular rhythm. Pulses: Normal pulses. Heart sounds: Normal heart sounds. No murmur heard. No friction rub. No gallop. Pulmonary: Effort: Pulmonary effort is normal. No respiratory distress. Breath sounds: Normal breath sounds. No wheezing, rhonchi or rales. Abdominal: General: There is no distension. Palpations: Abdomen is soft. Tenderness: There is no abdominal tenderness. Musculoskeletal: General: No swelling. Cervical back: Neck supple. Right lower leg: No edema. Left lower leg: No edema. Skin: General: Skin is warm and dry. Neurological: General: No focal deficit present. Mental Status: He is alert and oriented to person, place, and time. Cranial Nerves: No cranial nerve deficit. Gait: Gait normal. Psychiatric: Attention and Perception: Attention normal. Mood and Affect: Mood and affect normal. Behavior: Behavior normal. Thought Content: Thought content normal. EKG: Not completed today. TESTING: Lab Results Component Value Date GLUCOSE 121 (H) 02/11/2025 CALCIUM 8.8 02/11/2025 NA 143 02/11/2025 K 4.1 02/11/2025 CO2 22 02/11/2025 CL 108 (H) 02/11/2025 BUN 30 (H) 02/11/2025 CREATININE 1.48 (H) 02/11/2025 Lab Results Component Value Date CHOL 105 02/11/2025 CHOL 122 08/26/2022 Lab Results Component Value Date HDL 35 (L) 02/11/2025 HDL 35 (A) 08/26/2022 Lab Results Component Value Date LDLCALC 51 02/11/2025 Lab Results Component Value Date TRIG 96 02/11/2025 TRIG 89 08/26/2022 ASSESSMENT/PLAN: Assessment & Plan Chronic diastolic heart failure (CMS/HCC V24, CMS/HCC V28) The patient appears euvolemic on exam today. He reports ongoing shortness of breath but only with significant exertion and which he reports is at his typical baseline (he is followed by pulmonology for asthma). Continue current GDMT for heart failure including carvedilol and Farxiga in addition to furosemide. We will update a metabolic panel sometime around July when he sees his PCP for his annual exam. We discussed risk reduction through lifestyle modifications including healthy diet, routine exercise, and weight management as well . We reviewed heart failure management including low-sodium diet, symptom surveillance, daily weights, and medication compliance. I've asked the patient tocall if they develop worsening symptoms of heart failure such as increased shortness of breath, newor worsening cough, increased swelling in the legs or ankles, or weight gain of more than 2 pounds in one day or 4 pounds in one week. SOB (shortness of breath) Coronary artery disease involving bad river band coronary artery of bad river band heart without angina pectoris As above; no new or worsening symptoms to suggest underlying ischemia. He reports a burning sensation intermittently over his pacemaker site that has been present for the past 5 to 6 years and is unchanged from previous but otherwise denies any chest pain. His shortness of breath with exertion is unchanged form previous. Continue cardioprotective medical therapies including carvedilol, atorvastatin, and daily ASA without change. We reviewed that NSAIDs (including Celebrex) can often aggravate cardiovascular disease and he was strongly encouraged to reconsider his pain management regimen. The patient was advised to seek emergent medical attention by calling 911 if they were to develop severe dyspnea, chest pain that did not resolve with rest, or if they were to faint. Mixed hyperlipidemia LDL goal for this patient was a history of coronary artery disease is less than 70; his most recentlipid panel was completed 02/11/2025 showing an LDL of 51 which is at goal. Continue atorvastatin. Essential hypertension Blood pressure is favorable on current antihypertensive regimen; continue carvedilol and furosemidein addition to terazosin. Given his history of CKD, we will update a metabolic panel in July when he sees his PCP for his annual exam. Orders: Basic metabolic panel; Future Complete heart block (CMS/HCC V24, CMS/HCC V28) Status post pacemaker placement; continue with in office and remote device checks as per device clinic protocol. Cardiac pacemaker in situ Venous insufficiency No edema on exam today; the patient was encouraged to continue using compression stockings daily aswell as following a low-sodium diet and elevating his legs as able. Thank you for allowing us to participate in the care of this patient. The patient will follow up in6 months, sooner PRN. As per AHA guidelines and previously established plan of care by Dr. Jeanmarie Denise MD, we discussed the following today: diastolic heart failure, coronary artery disease, shortness of breath, hypertension, hyperlipidemia, complete heart block status post pacemaker, and venous insufficiency. This note was dictated using voice recognition software. Please pardon any grammatical or syntax errors. [facility] Cosigned by Wendi Morse MD at 06/13/2025 11:41 AM EDT documented in this encounter Plan of Treatment Upcoming Encounters Date Type Department Care Team (Late st Contact Info) Description 12/19/2025 11:00 AM EST Ancillary Procedure [facility] - [address] [place] [address] 04/20/2026 11:00 AM EDT Office Visit Pulmonolgy - [place] [address] [place] [address] Katherine Marin NP [address] [place] [address] Scheduled Orders Name Type Priority Associated Diagnoses Orde r Schedule Basic metabolic panel Lab Routine Essential hypertension 1 Occurrences starting 06/09/2025 until 06/09/2026 documented as of this encounter Visit Diagnoses Diagnosis Chronic diastolic heart failure (CMS/HCC V24, CMS/HCC V28)- Primary Chronic diastolic heart failure SOB (shortness of breath) Shortness of breath Coronary artery disease involving bad river band coronary artery of bad river band heart without angina pectoris Mixed hyperlipidemia Essential hypertension Unspecified essential hypertension Complete heart block (CMS/HCC V24, CMS/HCC V28) Atrioventricular block, complete Cardiac pacemaker in situ Venous insufficiency Unspecified venous (peripheral) insufficiency Encounter for adjustment or management of cardiac device documented in this encounter Care Teams Supervisor Power Reactor Relationship Specialty Start Date End Date Juve Reynoso PA [address] [place], [place] PCP - General 09/07/24 documented as of this encounter
--- OUTSIDE RECORDS SUMMARY | 2025-06-09 23:59 | XMS_ITS | Continuity of Care Document ---
Author Organization [facility] Address [address] [place] [address]- Care Team Providers Care Gastroenterology Teacher Name Role Phone Juve Chen Primary Care Physician [phone] Encounter [facility] Date(s): 05/10/25 - 06/09/[address] [id number] Encounter Type: Triage Allergies, Adverse Reactions, Alerts Substance Criticality Severity Reaction Reaction Severity Status losartan Active Immunizations Given and Recorded Vaccine Date Status Refusal Reason [id number] bivalent booster vax 09/13/22 Recorded SARS-CoV-2 (COVID-19) [...] 1 Refills, Maintenance, 06/29/24 10:43:00 AM EDT, [id number], 170.4, cm, 12/25/23 8:59:00 EST, [...] 1 Refills, Maintenance, 12/03/24 12:09:00 PM EST, [facility], 170.4, cm, 09/01/24 17:27:00 EDT, Height, 95, kg, 09/01/24 17:27:00 EDT, Dry Weight Start Date: 12/03/24 Status: Ordered Quantity: 90.0 Unit: tablet Repeat number: 1 celecoxib 200 mg oral capsule 1 capsule, By Mouth, Daily, PRN NEEDED FOR MODERATE PAIN, # 90 capsule, 0 Refills, Maintenance, 05/09/25 1:00:00 PM EDT, [facility], 170.4, cm, 04/08/25 10:27:00 EDT, Height, 95, kg, 09/01/24 17:27:00 EDT, Dry Weight Start Date: 05/09/25 Status: Ordered Quantity: 90.0 Unit: capsule Repeat [...] Refills, Soft Stop, 10/09/23 11:14:00 AM EST, [facility], Partial fill upon patient request if the prescription is for a schedule II opioid drug., 170.4, cm, 08/21/23 8:39:00 EDT, Height, 92, kg, 07/30/23 13:06:00 EDT, Dry Weight Start Date: 10/09/23 Status: Ordered Quantity: 1.0 Unit: each Repeat number: 1 Farxiga 10 mg oral tablet 1 tablet = 10 mg, By Mouth, Daily, # 30 tablet, 0 Refills, Maintenance, 01/20/25 9:10:00 AM EDT, Tablet, Partial fill upon patient request if the prescription is for a schedule II opioid drug. Start Date: 01/20/25 Status: Ordered Quantity: 30.0 Unit: tablet Repeat number: 1 finasteride 5 mg oral tablet .05, By Mouth, Daily, TAKE 1 TABLET BY MOUTH ONCE DAILY Start Date: 06/19/23 Status: Ordered Repeat number: 1 furosemide 20 mg oral tablet 1, capsule, By Mouth, 2 times a day, # 28 capsule, Refills 0, Tot. Refills 0, Soft Stop, 09/01/24 3:54:00 PM EDT, Route to Pharmacy Electronically, [facility], Partial fill upon patient request if the prescription is for a schedule II opioid drug., 170.4, cm, 09/01/24 14:38:00 EDT, Height, 95.5, kg, 08/02/24 10:21:00 EDT, Dry Weight Start Date: 09/01/24 Stop Date: 09/15/24 Status: Ordered Quantity: 28.0 Unit: capsule Repeat number: 1 gabapentin 400 mg oral capsule 400 mg, 1, capsule, By Mouth, 2 times a day, Refills 0, Maintenance, 04/08/25 10:26:00 AM EDT, Partial fill upon patient request if the prescription is for a schedule II opioid drug. Start Date: 04/08/25 Status: Ordered Repeat number: 1 Glucosamine See Instructions, two tabs daily, 0 Refills, Maintenance, 06/04/13 6:44:24 PM EDT Start Date: 06/04/13 Status: Ordered Repeat number: 1 omeprazole 20 mg oral enteric coated capsule 1 capsule, By Mouth, 2 times a day, # 180 capsule, 1 Refills, Maintenance, 11/13/24 8:29:00 AM EST, [facility], 170.4, cm, 09/01/24 17:27:00 EDT, Height, 95, kg, 09/01/24 17:27:00 EDT, Dry Weight Start Date: 11/13/24 Status: Ordered Quantity: 180.0 Unit: capsule Repeat number: 2 terazosin 10 mg oral capsule 10 mg, 1, capsule, By Mouth, Daily at bedtime, Refills 0, Maintenance, 11/26/18 2:16:21 PM EST Start Date: 11/26/18 Status: Ordered Repeat number: 1 zylflamend zylflamend, See Instructions, Refills 0, Maintenance, 1 x a day, 07/30/24 12:58:00 PM EDT, Supply Start Date: 07/30/24 Status: Ordered Repeat number: 1 Problem List Condition Confirmation Course Effective Dates Status H ealth Status Informant Asthma Confirmed Active BPH (benign prostatic hyperplasia) Confirmed Active Pacemaker Confirmed Active Diastolic CHF, chronic Confirmed Active Chronic kidney disease (CKD) stage G3a/A1, moderately decreased glomerular filtration rate (GFR) between 45-59 mL/min/1.73 square meter and albuminuria creatinine ratio less than 30 mg/g Confirmed Active Chronic low back pain Confirmed Active Complete heart block Confirmed Active CAD (coronary artery disease) Confirmed Active Generalized anxiety disorder Confirmed Active Hypertension Confirmed Active ITP (idiopathic thrombocytopenic purpura) Confirmed Active Obese class I Confirmed Active JEANETTE (obstructive sleep apnea) Confirmed Active Venous insufficiency Confirmed Active Social History Social History Type Response Smoking Status Never smoker entered on: 12/28/15 Sex Male Sex Representation Male (finding) Patient Care team information Care Team Personnel Name: Juve Chen Position: [facility] PCO Associate Professional Member Role: PCP Address: [address] [place] [address] Telecom: Name: Jessica Gallegos RN Position: S RN Member Role: Primary Care Nurse Name: Flower Joya RN Position: [facility] Onco RN Member Role: Primary Care Nurse Care Team Related Persons Name: GARY ROSENBERG Name: ALEXANDRA ROSENBERG Insurance Providers Guarantor name: MARLA ROSENBERG [facility] Plan Information #: 1 Payer: [employer] ADV PPO Payer Identifier: NA Member Number: [id number] Group Number: [id number] Subscriber Identifier: [id number] Relationship to Subscriber: self Coverage Type: Medicare PPO Coverage Verification Date: NA Telecom: NA Address:
--- NOTE | 2025-06-15 10:20 | A.OFFVIS_ITS ---
Intake Visit Reasons: 6m/PSA/PVR Intake Note: Patient is present for 6M/PSA/PVR Urology Medication:TERAZOSIN,FINASTERIDE Antibiotic Allergy:NONE Blood Thinner:ASPIRIN Last PVR:0ML'S Todays PVR:0ML'S Bookkeeping Clerks Supervisor Required: No Allergies No Known Allergies (No Known Allergies*) Allergy (Verified 06/15/25 11:19) Medication List - Last Reconciled 06/15/25 by MARY Pfeiffer- amlodipine 10 mg PO DAILY aspirin (Adult Low Dose Aspirin) 81 mg PO DAILY atorvastatin 40 mg PO BEDTIME carvedilol 25 mg PO BID celecoxib mg PO DAILY dapagliflozin propanediol (Farxiga) mg PO DAILY finasteride 5 mg PO .MWF 90 days fluticasone propion-salmeterol 250-50 mcg/dose 1 ea inhalation BID furosemide 20 mg PO DAILY gabapentin 400 mg PO BID ipratropium-albuterol 20-100 mcg/actuation (Combivent Respimat) 1 puff inhalation QID PRN omeprazole 40 mg PO BID terazosin 10 mg PO BEDTIME 90 days tramadol 50 mg PO TID PRN HPI Comments Details: Lui is a pleasant 75-year-old male patient of Dr. Hunt. He has a PMH of cardiac pacemaker pacemaker, ED, BPH, asthma, hypertension, and hyperlipidemia. He presents to the office today for follow-up of his benign prostatic hyperplasia. In discussion with the patient today he reports urologically to be doing and feeling well. He reports compliance with finasteride and terazosin as prescribed. He reports significant improvement in nocturia and urinary urgency. He currently denies any bothersome urinary issues or concerns. He denies urinary urgency, urinary frequency, incontinence, nocturia, hematuria, dysuria, foul smelling urine, changes to urinary stream, flank pain, fever, and or chills. He also reports following up with his production roustabout and has had a recent increase in his Celebrex as well as gabapentin for his ongoing lower back pain he continues to experience. He discusses being active in his [employer] league with his son and as well as golfing twice a week. In office urinalysis results reviewed with the patient today. PVR 0 mL. Recent PSA results reviewed with the patient today as noted and trended below. All questions were answered He otherwise offers no other issues or concerns at this time. PSA 05/02 2.0, 05/03 0.5, 06/03 0.4 [facility] Medical History Cardiac pacemaker Erectile dysfunction Benign prostatic hyperplasia with weak urinary stream Surgical History History of partial surgical removal of colon H/O cardiac catheterization Review of Systems Const Reports as per HPI Eyes Reports no additional complaints ENT Reports no additional complaints Card Reports no additional complaints Resp Reports as per HPI GI Reports no additional complaints Reports as per HPI Musc Reports as per HPI Skin/Breast Reports as per HPI Neuro Reports as per HPI Psych Reports as per HPI Endo Reports no additional complaints Bao/Lymph Reports no additional complaints Aller/Immun Reports no additional complaints Physical Exam Const General: cooperative, healthy appearing, comfortable, no acute distress, well developed, alert and awake Orientation/consciousness: patient oriented x3 Limitations: no limitations HEENT Head: Yes normal to inspection, Yes normocephalic and Yes atraumatic Ears: hearing grossly normal bilaterally Eyes General: appearance normal, both eyes and all related structures Neck Neck: Yes normal visual inspection and Yes trachea midline Chest Chest palpation & inspection: normal inspection of the chest Resp Effort & Inspection: normal respiratory effort and able to speak in complete sentences Cardio Rate: regular rate GI Inspection: Yes normal to inspection General: Yes no CVA tenderness Back/Spine/Pelvis Back: no CVA tenderness Skin General skin exam: no rashes or lesions noted Neuro General: patient oriented x3 Extrem General: Yes normal to inspection Psych Appearance: grossly normal and well kempt Mental Status: mental status grossly normal Speech and movement: Normal speech and movement present and Clear speech present Affect: normal affect Attitude: cooperative Thought process: Normal thought process present Thought content: Normal thought content present Insight: Fair insight present (Psych) Judgement: Fair judgement present (Psych) Office Procedures Post Void Residual Post Residual Void Post Void Residual (PVR): 0 [id number] Void Residual by ultrasound Results AMB Urinalysis, Automated UA Leukoctes 0 Matthieu/uL Last Edit by JANINE Jo on 06/15/25 10:40 UA Nitrite Negative Last Edit by JANINE Jo on 06/15/25 10:40 UA Urobilinogen 0.2 mg/dL Last Edit by JANINE Jo on 06/15/25 10:4 0 UA Protein 0 mg/dL Last Edit by [facility] on 06/15/25 10:40 UA pH 6.0 Last Edit by Tiffanie Appiah [facility] on 06/15/25 10:40 UA Blood 0 Barry/uL Last Edit by Tiffanie Appiah [facility] on 06/15/25 10:40 UA Specific [place] 1.005 Last Edit by Tiffanie Appiah [facility] on 06/15/25 10: 40 UA Ketone Negative Last Edit by Tiffanie Appiah [facility] on 06/15/25 10:40 UA Bilirubin 0 mg/dL Last Edit [facility]anie App[facility] on 06/15/25 10:40 UA Glucose 500 mg/dL Last Edit by Tiffanie Appiah [facility] on 06/15/25 10:40 Results Reviewed Results Reviewed: Laboratory Last Values Urine pH (Auto) 6.0 06/15/25 10:40 Specific [place] (Auto) 1.005 06/15/25 10:40 Urine Protein (Auto) 0 mg/dL 06/15/25 10:40 Glucose (UA)(Auto) 500 mg/dL 06/15/25 10:40 Urine Ketones (Auto) Negative 06/15/25 10:40 Urine Blood (Auto) 0 Barry/uL 06/15/25 10:40 Urine Nitrite (Auto) Negative 06/15/25 10:40 Urine Bilirubin (Auto) 0 mg/dL 06/15/25 10:40 Urine Urobilinogen (Auto) 0.2 mg/dL 06/15/25 10:40 Leukocyte Esterase (Auto) 0 Matthieu/uL 06/15/25 10:40 Assessment & Plan Assessment & Plan (1) Benign prostatic hyperplasia with weak urinary stream: Code(s): N40.1 - Benign prostatic hyperplasia with lower urinary tract symptoms; R39.12 - Poor urinary stream Category: Medical (2) Enlarged prostate: Code(s): N40.0 - Benign prostatic hyperplasia without lower urinary tract symptoms Category: Medical Plan In office urinalysis results with the patient today; as noted above. PVR 0 mL. Recent PSA results reviewed with the patient today; as noted above. Will continue with terazosin finasteride as prescribed. He currently denies any bothersome urinary issues or concerns. He reports be happy with current voiding parameters. Follow-up in 6 months with PVR; or sooner with any issues, concerns, and or questions. Orders: Orders AMB Urinalysis Automated Today Z13.9 - Encounter for screening, unspecified Patient Instructions: The patient had an opportunity to ask questions regarding the treatment plan. All questions were answered. Physical exam, labs, and imaging were discussed and reviewed in detail. As well as risks, benefits, and discussion of treatment choices. No major barriers to understanding were identified. The patient expressed understanding and agreement with the above treatment plan. The patient was made aware they should contact our office by phone for worsening of their current condition, the appearance of new symptoms, or with any questions or concerns. Compliance is encouraged with any medications and follow up testing that is ordered. It is a privilege to be allowed the opportunity to participate in? your urological care.? Again, if you have any questions or concerns If you have any questions or concerns please do not hesitate to contact me. The office is [phone]. This note is constructed using voice recognition software. While every effort has been made to ensure accuracy precision instrument maker errors may have been included. Yours sincerely, ROBERT Pfeiffer Coding Level of Care Code Est Pt Level 3 (20216) Complex EM visit Add On G2211 Diagnoses Benign prostatic hyperplasia with weak urinary stream N40.1; R39.12 Enlarged prostate N40.0 CPT Codes Post Residual Void - PVR CPT Code: 09341-[id number] Void Residual by ultrasound ([id number])
== END 2025-06-15 11:03 | disposition home or self-care (01) ==
LOC: HO.HUSH 10:18
PROVIDERS: PCP Student in an Organized Health Care Education/Training Program; Visit Provider Nurse Practitioner Family
DX: N40.1 Benign prostatic hyperplasia with lower urinary tract symptoms (principal); R39.12 Poor urinary stream; N40.0 Benign prostatic hyperplasia without lower urinary tract symptoms; Z13.9 Encounter for screening, unspecified
CPT/HCPCS: 99213; G2211

== ENCOUNTER → 2025-06-15 10:17 | Outpatient (BNVA) | payer MEDICARE, SELFPAY | PROVIDERS: PCP Student in an Organized Health Care Education/Training Program; Visit Provider Nurse Practitioner Family | DX: N40.1 Benign prostatic hyperplasia with lower urinary tract symptoms (principal); N13.8 Other obstructive and reflux uropathy; R39.12 Poor urinary stream; N52.9 Male erectile dysfunction, unspecified; Z13.9 Encounter for screening, unspecified | CPT/HCPCS: 51798; 81003; 99212 ==